=== PATIENT | female | born 1950 | race Caucasian/White ===

== ENCOUNTER → 2017-01-26 | Outpatient (CLI) | payer BC ==
[2017-01-26 13:38] LABS: ALT 47 U/L (9-52); AST 27 U/L (14-36); Alkaline Phosphatase 91 U/L (38-126); Anion Gap 10 mmol/L; Blood Urea Nitrogen 13 mg/dL (7-17); Calcium 9.8 mg/dL (8.4-10.2); Carbon Dioxide 29 mmol/L (22-30); Chloride 104 mmol/L (98-107); Cholesterol 188 mg/dL (<200); Glucose 115 mg/dL (74-99); HDL Cholesterol 65 mg/dL (40-60); Non-African American GFR(MDRD) 52 (>60 ml/min/1.73 sqM); Potassium 4.5 mmol/L (3.5-5.1); Sodium 143 mmol/L (137-145); Total Bilirubin 1.5 mg/dL (0.2-1.3); Total Protein 7.8 g/dL (6.3-8.2); Triglycerides 99 mg/dL (<150)
== END | disposition home or self-care (01) ==
LOC: LABWHC1 13:00
PROVIDERS: ATTEND Internal Medicine Interventional Cardiology
DX: E78.2 Mixed hyperlipidemia (principal)
CPT/HCPCS: 36415; 80053; 80061

== ENCOUNTER → 2017-07-29 | Outpatient (CLI) | payer MEDICARE ==
[2017-07-29 12:57] LABS: ALT 51 U/L (9-52); AST 30 U/L (14-36); Cholesterol 190 mg/dL (<200); HDL Cholesterol 67 mg/dL (40-60)
== END | disposition home or self-care (01) ==
LOC: LABWHC1 12:32
PROVIDERS: ATTEND Internal Medicine Interventional Cardiology
DX: E78.2 Mixed hyperlipidemia (principal)
CPT/HCPCS: 36415; 80061; 84450; 84460

== ENCOUNTER → 2018-02-13 | Outpatient (CLI) | payer MEDICARE ==
[2018-02-13 13:15] LABS: Albumin 4.2 g/dL (3.5-5.0); Calcium 9.6 mg/dL (8.4-10.2); Potassium 4.8 mmol/L (3.5-5.1); Total Bilirubin 1.3 mg/dL (0.2-1.3); Total Protein 7.4 g/dL (6.3-8.2)
== END | disposition home or self-care (01) ==
LOC: LABWHC1 12:28
PROVIDERS: ATTEND Internal Medicine Interventional Cardiology
DX: E78.2 Mixed hyperlipidemia (principal)
CPT/HCPCS: 36415; 80053; 80061

== ENCOUNTER → 2018-08-24 | Outpatient (CLI) | payer MEDICARE ==
[2018-08-24 19:37] LABS: LDL Cholesterol,Calculated 108.8 mg/dL (0.0-131.0); VLDL Calculation 19.2 mg/dL (5.00-40.00)
== END | disposition home or self-care (01) ==
LOC: LABWHC1 12:39
PROVIDERS: ATTEND Internal Medicine Interventional Cardiology
DX: E78.2 Mixed hyperlipidemia (principal)
CPT/HCPCS: 36415; 80061; 84450; 84460

== ENCOUNTER → 2019-03-17 | Outpatient (CLI) | payer MEDICARE ==
[2019-03-17 16:11] LABS: Albumin 4.3 g/dL (3.80-4.90); Albumin/Globulin Ratio 1.79 (1.60-3.17); Anion Gap 7.8 mmol/L (4.00-12.00); Calcium 9.5 mg/dL (8.7-10.3); Carbon Dioxide 26.2 mmol/L (21.6-31.8); Globulin 2.4 g/dL (1.6-3.3); LDL Cholesterol,Calculated 113.6 mg/dL (0.0-131.0); Potassium 4.4 mmol/L (3.5-5.5); Total Bilirubin 1.3 mg/dL (0.2-1.2); Total Protein 6.7 g/dL (6.2-8.2); VLDL Calculation 18.4 mg/dL (5.00-40.00)
== END | disposition home or self-care (01) ==
LOC: LABWHC1 11:48
PROVIDERS: ATTEND Internal Medicine Interventional Cardiology
DX: E78.2 Mixed hyperlipidemia (principal)
CPT/HCPCS: 36415; 80053; 80061

== ENCOUNTER → 2019-09-24 | Outpatient (CLI) | payer MEDICARE ==
[2019-09-24 17:53] LABS: Chol/HDL Ratio 2.61; LDL Cholesterol,Calculated 75.6 mg/dL (0.0-131.0); VLDL Calculation 14.4 mg/dL (5.00-40.00)
== END | disposition home or self-care (01) ==
LOC: LABWHC1 11:42
PROVIDERS: ATTEND Internal Medicine Interventional Cardiology
DX: E78.2 Mixed hyperlipidemia (principal)
CPT/HCPCS: 36415; 80061; 84450; 84460

== ENCOUNTER → 2019-10-26 | Outpatient (CLI) | payer MEDICARE ==
--- NOTE | 2019-10-27 14:38 | US ---
EXAMINATION TYPE: US venous doppler duplex LE LT DATE OF EXAM: 10/26/2019 5:22 PM COMPARISON: NONE CLINICAL HISTORY: Swelling of Left Lower Limb. calf palpable and pain, no h/o dvt SIDE PERFORMED: Left TECHNIQUE: The lower extremity deep venous system is examined utilizing real time linear array sonog amanda with graded compression, doppler sonography and color-flow sonography. VESSELS IMAGED: External Iliac Vein (EIV) Common Femoral Vein Deep Femoral Vein Greater Saphenous Vein * Femoral Vein Popliteal Vein Small Saphenous Vein * Proximal Calf Veins (* superficial vessels) Left Leg: Appears negative for DVT, superficial clot within seen in palpable lump on calf, noncompre ssible, internal echoes with no flow IMPRESSION: 1. No sonographic evidence of deep venous thrombosis within the left lower extremity. 2. Superficial venous thrombosis within left calf varicose veins.
== END | disposition home or self-care (01) ==
LOC: RADUSMAIN 16:44
PROVIDERS: ATTEND Family Medicine
DX: I82.812 Embolism and thrombosis of superficial veins of left lower extremity (principal); I86.8 Varicose veins of other specified sites

== ENCOUNTER → 2020-03-14 | Outpatient (CLI) | payer MEDICARE ==
[2020-03-14 19:18] LABS: African American GFR (CKD) 60.2 (60.0-200.0); Albumin 4.2 g/dL (3.80-4.90); Albumin/Globulin Ratio 1.75 (1.60-3.17); BUN/Creat Ratio 14.55 Ratio (12.00-20.00); Calcium 9.3 mg/dL (8.7-10.3); Chol/HDL Ratio 2.92; Globulin 2.4 g/dL (1.6-3.3); LDL Cholesterol,Calculated 75.6 mg/dL (0.0-131.0); Non-African American GFR(CKD) 51.9 (60.0-200.0); Potassium 4.5 mmol/L (3.5-5.5); Total Bilirubin 2.2 mg/dL (0.2-1.2); Total Protein 6.6 g/dL (6.2-8.2); VLDL Calculation 18.4 mg/dL (5.00-40.00)
== END | disposition home or self-care (01) ==
LOC: LABWHC1 10:52
PROVIDERS: ATTEND Internal Medicine Interventional Cardiology
DX: E78.2 Mixed hyperlipidemia (principal)
CPT/HCPCS: 36415; 80053; 80061

== ENCOUNTER 2020-07-03 15:43 | Observation (INO) | payer MEDICARE ==
[2020-07-03] MEDS ORDERED: PANTOPRAZOLE 40 MG/10 ML VIAL IVP STA (16:13)
[2020-07-03 16:39] LABS: Basophils # (A) 0.1 k/uL (0-0.2); Basophils % (A) 1 %; Eosinophils # (A) 0.2 k/uL (0-0.7); Eosinophils % (A) 2 %; HCT 43.6 % (34.0-46.0); HGB 14.4 gm/dL (11.4-16.0); Lymphocytes # (A) 2.1 k/uL (1.0-4.8); Lymphocytes % (A) 25 %; MCH 28.5 pg (25.0-35.0); MCHC 32.9 g/dL (31.0-37.0); MCV 86.5 fL (80.0-100.0); Mean Platelet Volume 7.3; Monocytes # (A) 0.5 k/uL (0-1.0); Monocytes % (A) 6 %; Neutrophils # (A) 5.4 k/uL (1.3-7.7); Neutrophils % (A) 65 %; Platelet Count 308 k/uL (150-450); RBC 5.04 m/uL (3.80-5.40); RDW 12.8 % (11.5-15.5); WBC 8.3 k/uL (3.8-10.6)
[2020-07-03 16:49] LABS: Partial Thromboplastin Time 23.2 sec (22.0-30.0)
[2020-07-03 16:52] LABS: Albumin 4.3 g/dL (3.5-5.0); Calcium 9.9 mg/dL (8.4-10.2); Magnesium 2.3 mg/dL (1.6-2.3); Potassium 4.3 mmol/L (3.5-5.1); Total Bilirubin 2.9 mg/dL (0.2-1.3); Total Protein 7.4 g/dL (6.3-8.2)
--- NOTE | 2020-07-03 17:05 | XR ---
EXAMINATION TYPE: XR chest 2V DATE OF EXAM: 07/03/2020 COMPARISON: 05/21/2011 HISTORY: Pain TECHNIQUE: FINDINGS: There is no heart failure nor confluent pneumonic infiltrate. Costophrenic angles are clear . Heart size is normal. Bony thorax is intact. IMPRESSION: No active cardiopulmonary disease. Normal heart.
[2020-07-03] MEDS ORDERED: cefTRIAXone IN SWFI 1,000 MG/10 ML SYRINGE IVP STA (17:11)
[2020-07-03] MEDS ORDERED: HYDROmorphone 1 MG/ML 1 ML SYRINGE IVP STA (17:11)
--- NOTE | 2020-07-03 17:26 | ED ---
General Adult HPI - General Chief complaint: Chest Pain Stated complaint: chest pain Time Seen by Provider: 07/03/20 15:55 Source: patient, RN notes reviewed, old records reviewed Mode of arrival: ambulatory Limitations: no limitations - History of Present Illness Initial comments: 69 -year-old female presenting for evaluation of epigastric and substernal chest pain. Patient's symptoms have been present for the past 4 hours. There is no associated nausea or vomiting. No diaphoresis. Patient has a history of a nonischemic cardiomyopathy and she does follow with cardiology. She denies fever. She denies cough or dyspnea. Denies lower extremity pain or swelling. She has no known history of coronary artery disease. - Related Data Home Medications Medication Instructions Recorded Confirmed Atorvastatin [Lipitor] 40 mg PO HS 07/03/20 07/03/20 Ezetimibe [Zetia] 10 mg PO DAILY 07/03/20 07/03/20 carvediloL [Coreg] 6.25 mg PO BID 07/03/20 07/03/20 lisinopriL 20 mg PO BID 07/03/20 07/03/20 Allergies Allergy/AdvReac Type Severity Reaction Status Date / Time No Known Allergies Allergy Verified 07/03/20 20:12 Review of Systems ROS Statement: Those systems with pertinent positive or pertinent negative responses have been documented in the HPI. ROS Other: All systems not noted in ROS Statement are negative. Past Medical History Past Medical History: Hyperlipidemia, Hypertension History of Any Multi-Drug Resistant Organisms: None Reported Past Surgical History: Tubal Ligation Past Psychological History: No Psychological Hx Reported Smoking Status: Never smoker Past Alcohol Use History: None Reported Past Drug Use History: None Reported General Exam Limitations: no limitations General appearance: alert, in no apparent distress Head exam: Present: atraumatic, normocephalic Eye exam: Present: normal appearance ENT exam: Present: normal exam Neck exam: Present: normal inspection. Absent: tenderness, meningismus Respiratory exam: Present: normal lung sounds bilaterally. Absent: respiratory distress, wheezes Cardiovascular Exam: Present: regular rate, normal rhythm GI/Abdominal exam: Present: soft. Absent: distended Extremities exam: Present: normal inspection, normal capillary refill. Absent: pedal edema, calf tenderness Neurological exam: Present: alert, oriented X3, CN II-XII intact. Absent: motor sensory deficit Psychiatric exam: Present: normal affect, normal mood Skin exam: Present: warm, dry, intact. Absent: cyanosis, diaphoretic Course Vital Signs 07/03/20 07/03/20 15:51 17:33 Temperature 97.9 F Pulse Rate 65 60 Respiratory 18 18 Rate Blood Pressure 146/71 145/88 O2 Sat by Pulse 100 98 Oximetry EKG Findings - EKG Comments: EKG Findings:: EKG: Obtained at 1607, sinus rhythm with PAC, rate of 66, NH interval 154, QRS duration 96, QTC 450, ST segment abnormality in lead 3, no reciprocal depression, EKG obtained at 1625, sinus rhythm rate with axis, no ST segment elevation, rate of 63, NH interval 152, QRS duration 102, QTC 446 Medical Decision Making - Medical Decision Making 69-year-old female presented for evaluation of epigastric abdominal pain and lower chest pain. No vomiting. No fever. Pain does not radiate. EKG is sinus rhythm. Workup reveals normal CBC, CMP shows elevated bilirubin at 2.9 and elevated AST and ALT. She does not have significant abdominal tenderness however ultrasound is performed which shows cholelithiasis, dilated common bile duct. Pain is improved the emergency department. She started on IV antibiotics she will be admitted to internal medicine with both gastroenterology and general surgery on consult. I did discuss case with Dr. German covering for general surgery. - Lab Data Result diagrams: 07/03/20 16:31 07/03/20 16:31 Lab Results 07/03/20 07/03/20 07/03/20 Range/Units 16:31 16:31 16:31 WBC 8.3 (3.8-10.6) k/uL RBC 5.04 (3.80-5.40) m/uL Hgb 14.4 (11.4-16.0) gm/dL Hct 43.6 (34.0-46.0) % MCV 86.5 (80.0-100.0) fL MCH 28.5 (25.0-35.0) pg MCHC 32.9 (31.0-37.0) g/dL RDW 12.8 (11.5-15.5) % Plt Count 308 (150-450) k/uL Neutrophils % 65 % Lymphocytes % 25 % Monocytes % 6 % Eosinophils % 2 % Basophils % 1 % Neutrophils # 5.4 (1.3-7.7) k/uL Lymphocytes # 2.1 (1.0-4.8) k/uL Monocytes # 0.5 (0-1.0) k/uL Eosinophils # 0.2 (0-0.7) k/uL Basophils # 0.1 (0-0.2) k/uL PT 10.0 (9.0-12.0) sec INR 1.0 (<1.2) APTT 23.2 (22.0-30.0) sec Sodium 140 (137-145) mmol/L Potassium 4.3 (3.5-5.1) mmol/L Chloride 105 (98-107) mmol/L Carbon Dioxide 26 (22-30) mmol/L Anion Gap 9 mmol/L BUN 17 (7-17) mg/dL Creatinine 0.96 (0.52-1.04) mg/dL Est GFR (CKD-EPI)AfAm 71 (>60 ml/min/1.73 sqM) Est GFR (CKD-EPI)NonAf 61 (>60 ml/min/1.73 sqM) Glucose 125 H (74-99) mg/dL Calcium 9.9 (8.4-10.2) mg/dL Magnesium 2.3 (1.6-2.3) mg/dL Total Bilirubin 2.9 H (0.2-1.3) mg/dL AST 122 H (14-36) U/L ALT 78 H (4-34) U/L Alkaline Phosphatase 101 (38-126) U/L Troponin I (0.000-0.034) ng/mL Total Protein 7.4 (6.3-8.2) g/dL Albumin 4.3 (3.5-5.0) g/dL Lipase 224 (23-300) U/L 07/03/20 Range/Units 16:31 WBC (3.8-10.6) k/uL RBC (3.80-5.40) m/uL Hgb (11.4-16.0) gm/dL Hct (34.0-46.0) % MCV (80.0-100.0) fL MCH (25.0-35.0) pg MCHC (31.0-37.0) g/dL RDW (11.5-15.5) % Plt Count (150-450) k/uL Neutrophils % % Lymphocytes % % Monocytes % % Eosinophils % % Basophils % % Neutrophils # (1.3-7.7) k/uL Lymphocytes # (1.0-4.8) k/uL Monocytes # (0-1.0) k/uL Eosinophils # (0-0.7) k/uL Basophils # (0-0.2) k/uL PT (9.0-12.0) sec INR (<1.2) APTT (22.0-30.0) sec Sodium (137-145) mmol/L Potassium (3.5-5.1) mmol/L Chloride (98-107) mmol/L Carbon Dioxide (22-30) mmol/L Anion Gap mmol/L BUN (7-17) mg/dL Creatinine (0.52-1.04) mg/dL Est GFR (CKD-EPI)AfAm (>60 ml/min/1.73 sqM) Est GFR (CKD-EPI)NonAf (>60 ml/min/1.73 sqM) Glucose (74-99) mg/dL Calcium (8.4-10.2) mg/dL Magnesium (1.6-2.3) mg/dL Total Bilirubin (0.2-1.3) mg/dL AST (14-36) U/L ALT (4-34) U/L Alkaline Phosphatase (38-126) U/L Troponin I <0.012 (0.000-0.034) ng/mL Total Protein (6.3-8.2) g/dL Albumin (3.5-5.0) g/dL Lipase (23-300) U/L Disposition Clinical Impression: Cholelithiasis, Choledocholithiasis, Hyperbilirubinemia Disposition: ADMITTED IP TO THIS [facility] Condition: Stable Is patient prescribed a controlled substance at d/c from ED?: No Referrals: Rene Phelan DO [Primary Care Provider] - 1-2 days Decision to Admit Reason: Admit from EC Decision Date: 07/03/20 Decision Time: 20:25
--- NOTE | 2020-07-03 19:50 | US ---
EXAMINATION TYPE: US gallbladder DATE OF EXAM: 07/03/2020 COMPARISON: NONE CLINICAL HISTORY: AB PAIN. Abdominal pain per order. Chest pain x 7 hours. EXAM MEASUREMENTS: Liver Length: 15.3 cm Gallbladder Wall: 0.29 cm CBD: 1.28 cm Right Kidney: 9.9 x 5.1 x 4.3 cm Pancreas: No abnormalities seen at this time. Liver: Anechoic area seen within left lobe measurin.1 x 1.2 x 0.9 cm. Gallbladder: Multiple hyperechoic areas with posterior shadowing are seen within the gallbladder. Evidence for sonographic Hebert's sign: No CBD: Measures dilated. Right Kidney: Renal pelvis appears prominent. IMPRESSION: Numerous gallstones. Large common bile duct but no dilation seen of the intrahepatic bile ducts. This is consistent with chronic gallbladder dysfunction.
[2020-07-03] MEDS ORDERED: metroNIDAZOLE-NS PMX 500 MG in SALINE 1 100ML.BAG IVPB STA (20:05)
[2020-07-03] MEDS ORDERED: HYDROmorphone 0.5 MG/0.5 ML SYRINGE IVP PRN (20:13)
[2020-07-03] MEDS ORDERED: ACETAMINOPHEN TAB 325 MG TAB PO PRN (20:13)
[2020-07-03] MEDS ORDERED: NALOXONE 0.4 MG/ML 1 ML VIAL IV PRN (20:13)
[2020-07-03] MEDS: SODIUM CHLORIDE 0.9% 1,000 ML IV SCH (20:22)
[2020-07-03] MEDS ORDERED: EZETIMIBE 10 MG TAB PO SCH (22:45)
[2020-07-03] MEDS: lisinopriL 20 MG TAB PO SCH (22:57)
[2020-07-03] MEDS: carvediloL 6.25 MG TAB PO SCH (22:57)
[2020-07-03] MEDS: ATORVASTATIN 40 MG TAB PO SCH (22:57)
[2020-07-04] MEDS: SODIUM CHLORIDE 0.9% 1,000 ML IV SCH ×3 (04:42→21:13)
[2020-07-04] MEDS: metroNIDAZOLE-NS PMX 500 MG in SALINE 1 100ML.BAG IVPB SCH ×3 (04:42→21:13)
[2020-07-04] MEDS: EZETIMIBE 10 MG TAB PO SCH (08:53)
[2020-07-04] MEDS: lisinopriL 20 MG TAB PO SCH ×2 (08:53→21:13)
[2020-07-04] MEDS: carvediloL 6.25 MG TAB PO SCH ×2 (08:53→16:26)
[2020-07-04 10:59] LABS: Basophils # (A) 0.1 k/uL (0-0.2); Basophils % (A) 1 %; Eosinophils # (A) 0.1 k/uL (0-0.7); Eosinophils % (A) 2 %; HCT 41.6 % (34.0-46.0); HGB 13.6 gm/dL (11.4-16.0); Lymphocytes # (A) 1.2 k/uL (1.0-4.8); Lymphocytes % (A) 21 %; MCH 28.7 pg (25.0-35.0); MCHC 32.7 g/dL (31.0-37.0); MCV 87.6 fL (80.0-100.0); Mean Platelet Volume 7.7; Monocytes # (A) 0.3 k/uL (0-1.0); Monocytes % (A) 6 %; Neutrophils # (A) 3.9 k/uL (1.3-7.7); Neutrophils % (A) 69 %; Platelet Count 277 k/uL (150-450); RBC 4.75 m/uL (3.80-5.40); RDW 12.7 % (11.5-15.5); WBC 5.6 k/uL (3.8-10.6)
[2020-07-04] MEDS ORDERED: INDOMETHACIN 50MG SUPPOSITORY RECTAL ONE (11:00)
[2020-07-04 11:09] LABS: Albumin 3.7 g/dL (3.5-5.0); Potassium 4.2 mmol/L (3.5-5.1); Total Bilirubin 3.1 mg/dL (0.2-1.3); Total Protein 6.5 g/dL (6.3-8.2)
--- NOTE | 2020-07-04 11:38 | P.GSCN ---
<Cyndy Jeong - Last Filed: 07/04/20 11:26> History of Present Illness Consult date: 07/04/20 History of present illness: CHIEF COMPLAINT: Abdominal pain HISTORY OF PRESENT ILLNESS: This is a 69-year-old female with a history of nonischemic cardiopathy, hypertension and hyperlipidemia. She presented to the emergency room with complaints of right upper quadrant pain that radiates to the left and all way around the back. She describes it as a burning sensation and rate the pain 10 out of 10. She reports symptoms started around noon yesterday and continued to progressively get worse. She reports that for a while now she does get pain after eating. She denies any vomiting or fever. She has been having regular bowel movements. She reports that her pain is better since coming into the hospital. Ultrasound of the gallbladder showed numerous gallstones. Large common bile duct. But no dilation seen of the intrahepatic bile ducts. Her total bilirubin and LFTs are elevated. Patient is also been seen by GI service and they're planning for ERCP today. PAST MEDICAL HISTORY: See list. PAST SURGICAL HISTORY: See list. MEDICATIONS: See list. ALLERGIES: See list. SOCIAL HISTORY: No illicit drug use. REVIEW OF SYSTEMS: CONSTITUTIONAL: Denies fever or chills. HEENT: Denies blurred vision, vision changes, or eye pain. Denies hemoptysis CARDIOVASCULAR: Denies chest pain or pressure. RESPIRATORY: No shortness of breath. GASTROINTESTINAL: See HPI for pertinent findings HEMATOLOGIC: Denies bleeding disorders. GENITOURINARY: Denies any blood in urine or increased urinary frequency. SKIN: Denies pruitis. Denies rash. PHYSICAL EXAM: VITAL SIGNS: Reviewed GENERAL: Well-developed in no acute distress. HEENT: No sclera icterus. Extraocular movements grossly intact. Moist buccal mucosa. Head is atraumatic, normocephalic. No nasal drainage. ABDOMEN: Soft. Nondistended. Mild tenderness with palpation of the right upper quadrant and epigastric area NEUROLOGIC: Alert and oriented. Cranial nerves II through XII grossly intact. LABORATORY DATA: WBC 5.6 hemoglobin 13.6 platelets 277 total bili 3.1 AST to 44 ALT 326 alk phos 135 IMAGING: Abdominal ultrasound numerous gallstones. Large common bile duct. But no dilation seen of the intrahepatic bile ducts. Findings consistent with chronic gallbladder dysfunction ASSESSMENT: 1. Choledocholithiasis 2. Cholelithiasis 3. Hyperbilirubinemia 4. History of nonischemic myopathy 5. Essential hypertension 6. Hyperlipidemia PLAN: -Keep patient nothing by mouth -Agree with ERCP by GI service -Continue IV fluids -Continue pain medications as needed Physician Stained Glass Glazier note has been reviewed by physician. Signing provider agrees with the documented findings, assessment, and plan of care. Past Medical History Past Medical History: Hyperlipidemia, Hypertension History of Any Multi-Drug Resistant Organisms: None Reported Past Surgical History: Tubal Ligation Past Anesthesia/Blood Transfusion Reactions: No Reported Reaction Past Psychological History: No Psychological Hx Reported Smoking Status: Never smoker Past Alcohol Use History: None Reported Past Drug Use History: None Reported Medications and Allergies Home Medications Medication Instructions Recorded Confirmed Type Atorvastatin [Lipitor] 40 mg PO HS 07/03/20 07/03/20 History Ezetimibe [Zetia] 10 mg PO DAILY 07/03/20 07/03/20 History carvediloL [Coreg] 6.25 mg PO BID 07/03/20 07/03/20 History lisinopriL 20 mg PO BID 07/03/20 07/03/20 History Allergies Allergy/AdvReac Type Severity Reaction Status Date / Time No Known Allergies Allergy Verified 07/03/20 20:12 Surgical - Exam Vital Signs Temp Pulse Resp BP Pulse Ox 97.9 F 65 18 146/71 100 07/03/20 15:51 07/03/20 15:51 07/03/20 15:51 07/03/20 15:51 07/03/20 15:51 Results - Labs 07/04/20 10:42 07/04/20 10:42 Abnormal Lab Results - Last 24 Hours (Table) 07/03/20 07/04/20 Range/Units 16:31 10:42 Chloride 108 H (98-107) mmol/L Glucose 125 H 118 H (74-99) mg/dL Total Bilirubin 2.9 H 3.1 H (0.2-1.3) mg/dL AST 122 H 244 H (14-36) U/L ALT 78 H 326 H (4-34) U/L Alkaline Phosphatase 135 H (38-126) U/L Diabetes panel 07/03/20 07/04/20 Range/Units 16:31 10:42 Sodium 140 141 (137-145) mmol/L Potassium 4.3 4.2 (3.5-5.1) mmol/L Chloride 105 108 H (98-107) mmol/L Carbon Dioxide 26 27 (22-30) mmol/L BUN 17 15 (7-17) mg/dL Creatinine 0.96 1.04 (0.52-1.04) mg/dL Glucose 125 H 118 H (74-99) mg/dL Calcium 9.9 9.0 (8.4-10.2) mg/dL AST 122 H 244 H (14-36) U/L ALT 78 H 326 H (4-34) U/L Alkaline Phosphatase 101 135 H (38-126) U/L Total Protein 7.4 6.5 (6.3-8.2) g/dL Albumin 4.3 3.7 (3.5-5.0) g/dL Calcium panel 07/03/20 07/04/20 Range/Units 16:31 10:42 Calcium 9.9 9.0 (8.4-10.2) mg/dL Albumin 4.3 3.7 (3.5-5.0) g/dL Pituitary panel 07/03/20 07/04/20 Range/Units 16:31 10:42 Sodium 140 141 (137-145) mmol/L Potassium 4.3 4.2 (3.5-5.1) mmol/L Chloride 105 108 H (98-107) mmol/L Carbon Dioxide 26 27 (22-30) mmol/L BUN 17 15 (7-17) mg/dL Creatinine 0.96 1.04 (0.52-1.04) mg/dL Glucose 125 H 118 H (74-99) mg/dL Calcium 9.9 9.0 (8.4-10.2) mg/dL Adrenal panel 07/03/20 07/04/20 Range/Units 16:31 10:42 Sodium 140 141 (137-145) mmol/L Potassium 4.3 4.2 (3.5-5.1) mmol/L Chloride 105 108 H (98-107) mmol/L Carbon Dioxide 26 27 (22-30) mmol/L BUN 17 15 (7-17) mg/dL Creatinine 0.96 1.04 (0.52-1.04) mg/dL Glucose 125 H 118 H (74-99) mg/dL Calcium 9.9 9.0 (8.4-10.2) mg/dL Total Bilirubin 2.9 H 3.1 H (0.2-1.3) mg/dL AST 122 H 244 H (14-36) U/L ALT 78 H 326 H (4-34) U/L Alkaline Phosphatase 101 135 H (38-126) U/L Total Protein 7.4 6.5 (6.3-8.2) g/dL Albumin 4.3 3.7 (3.5-5.0) g/dL <Samuel German - Last Filed: 07/04/20 14:12> History of Present Illness History of present illness: As above. Patient with presentation consistent with choledocholithiasis and cholecystitis. Today's liver enzymes have increased slightly. Apparently patient is already scheduled for ERCP today. Await those findings. Likely discharge over the weekend and plan semi-elective laparoscopic cholecystectomy next 1-2 weeks. Clinical scenario discussed in detail with the patient. Patient expresses understanding. Surgical - Exam Vital Signs Temp Pulse Resp BP Pulse Ox 97.9 F 65 18 146/71 100 07/03/20 15:51 07/03/20 15:51 07/03/20 15:51 07/03/20 15:51 07/03/20 15:51 Results - Labs 07/04/20 10:42 07/04/20 10:42 Abnormal Lab Results - Last 24 Hours (Table) 07/03/20 07/04/20 Range/Units 16:31 10:42 Chloride 108 H (98-107) mmol/L Glucose 125 H 118 H (74-99) mg/dL Total Bilirubin 2.9 H 3.1 H (0.2-1.3) mg/dL AST 122 H 244 H (14-36) U/L ALT 78 H 326 H (4-34) U/L Alkaline Phosphatase 135 H (38-126) U/L Diabetes panel 07/03/20 07/04/20 Range/Units 16:31 10:42 Sodium 140 141 (137-145) mmol/L Potassium 4.3 4.2 (3.5-5.1) mmol/L Chloride 105 108 H (98-107) mmol/L Carbon Dioxide 26 27 (22-30) mmol/L BUN 17 15 (7-17) mg/dL Creatinine 0.96 1.04 (0.52-1.04) mg/dL Glucose 125 H 118 H (74-99) mg/dL Calcium 9.9 9.0 (8.4-10.2) mg/dL AST 122 H 244 H (14-36) U/L ALT 78 H 326 H (4-34) U/L Alkaline Phosphatase 101 135 H (38-126) U/L Total Protein 7.4 6.5 (6.3-8.2) g/dL Albumin 4.3 3.7 (3.5-5.0) g/dL Calcium panel 07/03/20 07/04/20 Range/Units 16:31 10:42 Calcium 9.9 9.0 (8.4-10.2) mg/dL Albumin 4.3 3.7 (3.5-5.0) g/dL Pituitary panel 07/03/20 07/04/20 Range/Units 16:31 10:42 Sodium 140 141 (137-145) mmol/L Potassium 4.3 4.2 (3.5-5.1) mmol/L Chloride 105 108 H (98-107) mmol/L Carbon Dioxide 26 27 (22-30) mmol/L BUN 17 15 (7-17) mg/dL Creatinine 0.96 1.04 (0.52-1.04) mg/dL Glucose 125 H 118 H (74-99) mg/dL Calcium 9.9 9.0 (8.4-10.2) mg/dL Adrenal panel 07/03/20 07/04/20 Range/Units 16:31 10:42 Sodium 140 141 (137-145) mmol/L Potassium 4.3 4.2 (3.5-5.1) mmol/L Chloride 105 108 H (98-107) mmol/L Carbon Dioxide 26 27 (22-30) mmol/L BUN 17 15 (7-17) mg/dL Creatinine 0.96 1.04 (0.52-1.04) mg/dL Glucose 125 H 118 H (74-99) mg/dL Calcium 9.9 9.0 (8.4-10.2) mg/dL Total Bilirubin 2.9 H 3.1 H (0.2-1.3) mg/dL AST 122 H 244 H (14-36) U/L ALT 78 H 326 H (4-34) U/L Alkaline Phosphatase 101 135 H (38-126) U/L Total Protein 7.4 6.5 (6.3-8.2) g/dL Albumin 4.3 3.7 (3.5-5.0) g/dL
[2020-07-04] MEDS: PANTOPRAZOLE 40 MG/10 ML VIAL IVP SCH (12:00)
[2020-07-04] MEDS ORDERED: fentaNYL (PF) 50 MCG/ML 2 ML AMP ONE (13:31)
[2020-07-04] MEDS ORDERED: PROPOFOL 10 MG/ML 20 ML VIAL IV ONE (13:31)
[2020-07-04] MEDS ORDERED: LIDOCAINE 1% INJ 10MG/ML (20 ML MDV) ONE (13:31)
[2020-07-04] MEDS ORDERED: KETAMINE 10 MG/ML 20 ML VIAL ONE (13:31)
[2020-07-04] MEDS ORDERED: MIDAZOLAM 2 MG/2 ML VIAL ONE (13:31)
[2020-07-04] MEDS ORDERED: IOPAMIDOL-300 50ML BTL INJ ONE (13:54)
--- NOTE | 2020-07-04 14:13 | P.PCN ---
Date of Procedure: 07/04/20 Procedure(s) Performed: Brief history: Patient is a 69-year-old pleasant lady scheduled for an ERCP as part of evaluation of abdominal pain, jaundice and elevated serum transaminases for the last 2 days' duration. Ultrasound showed multiple gallstones and dilated common bile duct. Because of the clinical suspicion for CBD stones she is scheduled for an ERCP today. Procedure performed: ERCP with biliary sphincterotomy and balloon extraction Preoperative diagnoses: Abdominal pain/ elevated LFTs, jaundice and ultrasound showing dilated CBD and constipation IV sedation per anesthesia: Procedure: After informed consent was obtained from the patient and after the risks benefits and complications including bleeding perforation and pancreatitis explained in detail the patient was brought into the endoscopy unit. The patient was placed in prone position and IV conscious sedation was administered by anesthesia under continuous monitoring. The Olympus side-viewing duodenoscope was then inserted into the mouth and esophagus intubated without any difficulty. The scope was gradually advanced into the stomach and duodenum. The major papilla was identified without any difficulty. Initial cannulation resulted resulted in opacification of the pancreatic duct that appeared normal. Subsequent cannulation resultedin its in the common bile duct and upon injection of the dye the duct was dilated measuring 1 cm in diameter. It was a faint filling defect noted in the distal common bile duct noted. There was no intrahepatic biliary ductal dilation. At this time a biliary sphincterotomy was performed over a guidewire after the catheter was exchanged. The sphincterotomy was performed at 12 o'clock position and was extended to 1 cm. Following this a 1 cm balloon was passed over the guidewire into the proximal CBD, gently inflated and withdrawn and I did not see any stones exiting the ampulla. The maneuver was repeated 2 more times. Occlusion cholangiogram was performed. No filling defects were seen. At this time the procedure was terminated. Patient tolerated the procedure well. Impression: Normal pancreatic duct Dilated common bile duct measuring 10 mm in diameter with a faint filling defect in the distal common bile duct status post biliary sphincterotomy and balloon sweep Recommendations: The findings of this examination were discussed with the patient. She was started on a clear liquid diet. Pain medications as needed. Continue antibiotics. Repeat labs in the morning.
[2020-07-04] MEDS ORDERED: IV FLUID CONTINUATION 1,000 ML IV ONE (14:19)
--- NOTE | 2020-07-04 14:34 | FL ---
EXAMINATION TYPE: FL ERCP biliary duct only DATE OF EXAM: 07/04/2020 COMPARISON: NONE HISTORY: Dilated common bile duct Fluoroscopy support supplied to the referring clinician. See dictated report from gastroenterology, 1 minute 35 seconds fluoroscopy time, 2 intraoperative images document the procedure
--- NOTE | 2020-07-04 16:06 | P.HPIM ---
History of Present Illness H&P Date: 07/04/20 Chief Complaint: Distal mid epigastric strict abdominal pressure/right upper quadrant pain This is 69-year-old female with history of hypertension, hyperlipidemia, nonischemic cardiomyopathy presented to the ER with complaints of mid epigastric to right upper quadrant burning pain radiating to back 4 hours. Reports pain worsens after eating. Denies nausea vomiting or diarrhea. Denies fever or chills. Denies cough congestion or shortness of breath. Chest x-ray reporting no acute cardiopulmonary disease. Gallbladder ultrasound reporting numerous gallstones, large common bile duct but no dilation seen at the intrahepatic bile ducts, consistent with chronic gallbladder dysfunction. T bili and LFTs elevated. Evaluated by surgery and GI, scheduled for ERCP today. Afebrile, normal WBC. Review of Systems ROS Statement: Those systems with pertinent positive or pertinent negative responses have been documented in the HPI. ROS Other: All systems not noted in ROS Statement are negative. Past Medical History Past Medical History: Hyperlipidemia, Hypertension History of Any Multi-Drug Resistant Organisms: None Reported Past Surgical History: Tubal Ligation Past Anesthesia/Blood Transfusion Reactions: No Reported Reaction Past Psychological History: No Psychological Hx Reported Smoking Status: Never smoker Past Alcohol Use History: None Reported Past Drug Use History: None Reported Medications and Allergies Home Medications Medication Instructions Recorded Confirmed Type Atorvastatin [Lipitor] 40 mg PO HS 07/03/20 07/03/20 History Ezetimibe [Zetia] 10 mg PO DAILY 07/03/20 07/03/20 History carvediloL [Coreg] 6.25 mg PO BID 07/03/20 07/03/20 History lisinopriL 20 mg PO BID 07/03/20 07/03/20 History Allergies Allergy/AdvReac Type Severity Reaction Status Date / Time No Known Allergies Allergy Verified 07/03/20 20:12 Physical Exam Vitals: Vital Signs Temp Pulse Pulse Resp BP BP Pulse Ox 07/04/20 07:41 98.4 F 62 16 145/70 96 07/04/20 02:06 98.6 F 87 16 105/55 97 07/03/20 20:52 97.9 F 65 16 142/80 97 07/03/20 20:30 98.0 F 66 16 142/80 96 07/03/20 20:00 65 15 145/88 97 07/03/20 19:30 66 16 145/88 97 07/03/20 19:00 61 14 145/88 98 07/03/20 18:30 61 12 145/88 100 07/03/20 18:00 69 12 145/88 97 07/03/20 17:33 60 18 145/88 98 07/03/20 17:30 61 23 145/88 97 07/03/20 17:00 62 13 145/88 98 07/03/20 16:30 59 L 13 07/03/20 15:51 97.9 F 65 18 146/71 100 Intake and Output 07/03/20 07/04/20 07/04/20 22:59 06:59 14:59 Intake Total 480 Balance 480 Intake: Oral 480 Other: Voiding Method Toilet # Voids 1 1 Weight 77.111 kg PHYSICAL EXAM: VITAL SIGNS: As above GENERAL: Sitting up in bed, no acute distress HEENT: Conjunctivae normal. eyes normal. NECK: No JVD. No thyroid enlargement. No LNs CARDIOVASCULAR: S1, S2 regular.. No murmur RESPIRATION: Breath sounds diminished in the bases. No rhonchi or crackles. No bronchial breathing. ABDOMEN: Soft, nontender . No guarding. no masses palpable. No ascites, No hepatosplenomegaly.Bowel sounds heard. LEGS: No edema. no swelling PSYCHIATRY: Alert and oriented X3, mood and affect normal. NERVOUS SYSTEM: Cranial N 2-12 grossly normal. Moves all 4 limbs. Diffuse weakness No focal deficits. Strength and sensation grossly intact.. Skin: no lesions, no rash Joints: No active swelling. No inflammation. Lymphatic system. No LN neck axilla or groin. Results CBC & Chem 7: 07/04/20 10:42 07/04/20 10:42 Labs: Abnormal Lab Results - Last 24 Hours (Table) 07/03/20 07/04/20 Range/Units 16:31 10:42 Chloride 108 H (98-107) mmol/L Glucose 125 H 118 H (74-99) mg/dL Total Bilirubin 2.9 H 3.1 H (0.2-1.3) mg/dL AST 122 H 244 H (14-36) U/L ALT 78 H 326 H (4-34) U/L Alkaline Phosphatase 135 H (38-126) U/L Thrombosis Risk Factor Assmnt - Choose All That Apply Other Risk Factors: Yes Each Risk Factor Represents 2 Points: Age 61-74 years Other congenital or acquired thrombophilia - If yes, enter type in comment: No Thrombosis Risk Factor Assessment Total Risk Factor Score: 2 Thrombosis Risk Factor Assessment Level: Low Risk Assessment and Plan Assessment: Acute abdominal pain, secondary to cholecystitis, choledocholithiasis. ERCP pending Hyperbilirubinemia History of nonischemic cardiomyopathy Hypertension Hyperlipidemia Plan: Continue current medication regime ,monitoring and symptomatic treatment.NPO, ERCP pending. Maintain IV fluid hydration, Flagyl, Rocephin. Pain management. Laparoscopic cholecystectomy as per surgery, in the next 1 or 2 weeks. GI and surgery recommendations noted and appreciated. Close monitoring of T bili/LFTs with repeat labs ordered for a.m. The impression and plan of care has been dictated as directed. : I performed a history and examination of this patient, discussed the same with the dictator. I agree with the dictator's note ,documented as a scribe. Any additional findings or plans will be noted.
[2020-07-04] MEDS: ONDANSETRON 4 MG/2 ML VIAL IVP PRN (16:28)
--- NOTE | 2020-07-04 17:51 | CONS ---
CONSULTATION DATE OF DICTATION: 07/04/2020 REASON FOR CONSULTATION: Abdominal pain, elevated LFTs and jaundice. HISTORY OF PRESENT ILLNESS: The patient is a 69-year-old pleasant white female admitted to the hospital when she presented with severe acute onset of epigastric and right upper quadrant abdominal pain that started yesterday afternoon. Pain radiated to the back associated with nausea and vomiting. No fever, chills or night sweats. She came into the emergency room and was noted to have elevated LFTs and jaundice and hence we are consulted for possible ERCP. She is feeling much better today. She denies ever having these symptoms in the past. On review of her labs, T-bilirubin is up to 3.1. AST and ALT are 244 and 326, respectively. She did have ultrasound of the gallbladder done that showed multiple gallstones and dilated CBD at 1.2 cm. PAST MEDICAL HISTORY: Hypertension, hyperlipidemia. MEDICATIONS AT HOME: Lisinopril, Coreg, Zetia, Lipitor. ALLERGIES: NONE. SOCIAL HISTORY: No smoking. No alcohol use. FAMILY HISTORY: Unremarkable. REVIEW OF SYSTEMS: CARDIOPULMONARY: No chest pain or shortness of breath. GENITOURINARY: No dysuria or hematuria. MUSCULOSKELETAL: Unremarkable. SKIN: Unremarkable. ENDOCRINE: Unremarkable. PSYCHIATRIC: Unremarkable. NEUROLOGY: Unremarkable. ENT/VISION: Unremarkable. CONSTITUTIONAL: No recent weight loss. No fever, chills, night sweats. PHYSICAL EXAMINATION: She appears comfortable. Blood pressure 145/70, pulse rate 62, temperature 98.4. HEENT examination unremarkable. Conjunctivae pink. Sclerae anicteric. Oral cavity no lesions. NECK: No JVD or lymph node enlargement. CHEST: Clear to auscultation. HEART: Regular rate and rhythm. ABDOMEN: Soft. Mild tenderness in the epigastric area. Bowel sounds are positive. No organomegaly. EXTREMITIES: No pedal edema. SKIN: No rashes. NEUROLOGIC: Alert and oriented x3. No focal deficits. LABS: WBC 8.3, hemoglobin 14.4, platelets normal. Basic metabolic panel is within normal limits. T-bilirubin 3.1, AST 244, ALT 326, alkaline phosphatase 138. Amylase and lipase are normal. IMPRESSION: This lady presented to the hospital with severe epigastric pain radiating to the back associated with elevated liver function tests and mild jaundice. Ultrasound showed gallstones and biliary ductal dilation. Most likely we are dealing with choledocholithiasis. RECOMMENDATIONS: 1. Continue with antibiotics. 2. Keep her n.p.o. 3. Will proceed with an ERCP. I discussed with her risks, benefits and complications, including pancreatitis, bleeding, etc. She is agreeable to it. Thank you for this consultation. EBNOIE / JESSY: [id number] /
[2020-07-04] MEDS ORDERED: METOCLOPRAMIDE 5 MG/ML 2 ML VIAL IVP STA (18:12)
[2020-07-04] MEDS: ATORVASTATIN 40 MG TAB PO SCH (21:13)
[2020-07-05] MEDS: SODIUM CHLORIDE 0.9% 1,000 ML IV SCH ×3 (04:05→20:19)
[2020-07-05] MEDS: metroNIDAZOLE-NS PMX 500 MG in SALINE 1 100ML.BAG IVPB SCH ×3 (04:06→20:19)
[2020-07-05 07:11] LABS: Basophils % (A) 1 %; Eosinophils # (A) 0.2 k/uL (0-0.7); Eosinophils % (A) 2 %; HCT 36.6 % (34.0-46.0); HGB 11.9 gm/dL (11.4-16.0); Lymphocytes # (A) 1.7 k/uL (1.0-4.8); Lymphocytes % (A) 19 %; MCH 28.4 pg (25.0-35.0); MCHC 32.4 g/dL (31.0-37.0); MCV 87.8 fL (80.0-100.0); Mean Platelet Volume 7.5; Monocytes # (A) 0.6 k/uL (0-1.0); Monocytes % (A) 6 %; Neutrophils # (A) 6.7 k/uL (1.3-7.7); Neutrophils % (A) 72 %; Platelet Count 246 k/uL (150-450); RBC 4.17 m/uL (3.80-5.40); RDW 12.7 % (11.5-15.5); WBC 9.3 k/uL (3.8-10.6)
[2020-07-05 07:30] LABS: Albumin 2.9 g/dL (3.5-5.0); Calcium 8.2 mg/dL (8.4-10.2); Potassium 3.9 mmol/L (3.5-5.1); Total Bilirubin 1.9 mg/dL (0.2-1.3); Total Protein 5.5 g/dL (6.3-8.2)
[2020-07-05] MEDS: carvediloL 6.25 MG TAB PO SCH ×2 (08:03→16:57)
[2020-07-05] MEDS: EZETIMIBE 10 MG TAB PO SCH (08:03)
[2020-07-05] MEDS: lisinopriL 20 MG TAB PO SCH ×2 (08:03→20:19)
[2020-07-05] MEDS: PANTOPRAZOLE 40 MG/10 ML VIAL IVP SCH (08:03)
--- NOTE | 2020-07-05 10:13 | PN ---
PROGRESS NOTE DATE OF SERVICE: July 05, 2020 HISTORY OF PRESENT ILLNESS: The patient is a 69-year-old pleasant white female admitted to hospital with acute biliary pain, elevated LFTs and mild jaundice. Ultrasound showed gallstones. She had ERCP done yesterday that showed dilated CBD but no filling defects noted. She underwent biliary sphincterotomy. She is doing better today. She had some emesis after eating clear liquids this morning. No abdominal pain. PHYSICAL EXAMINATION: Appears comfortable. VITAL SIGNS: Stable. Blood pressure 149/71, pulse 85, temperature 97.8. HEENT examination unremarkable. Conjunctivae pink. Sclerae anicteric. Oral cavity no lesions. Neck no JVD. No lymph node enlargement. Chest was clear to auscultation. HEART: Regular rate and rhythm. ABDOMEN: Soft. Very minimal tenderness in the epigastric area. Rest of the abdomen was benign. Bowel sounds are positive. No organomegaly. Extremities: No pedal edema. NEUROLOGIC: Alert and oriented x3. No focal deficits. LABS: WBC 9.3, hemoglobin 11.9. Platelets normal. T-bilirubin down to 1.9. AST down to 100, ALT down to 204, alkaline phosphatase is normal. IMPRESSION: 1. Epigastric right upper quadrant abdominal pain with elevated LFTs and jaundice. Ultrasound showing gallstones and biliary ductal dilation, status post ERCP with biliary sphincterotomy yesterday. LFTs are improving today. She is doing well. 2. Nausea and vomiting, resolving. 3. Gallstones. RECOMMENDATIONS: 1. Advance diet as tolerated. 2. Pain medications as needed. 3. Monitor LFTs closely. Thank you for this consultation. MMODL / IJN: [id number] /
--- NOTE | 2020-07-05 15:06 | P.PN ---
Subjective Progress Note Date: 07/05/20 CHIEF COMPLAINT: Gallstones HISTORY OF PRESENT ILLNESS: The patient is a 69-year-old female with symptomatic gallstones. She is status post ERCP today. She reports improvement of her abdominal pain. LFTs including total bilirubin is improving. She tolerated low fat diet for lunch. She is eager to go home. ROS: No reports of nausea and vomiting. No fevers or chills. No new chest pain. No productive sputum PHYSICAL EXAM: VITAL SIGNS: Reviewed CONSTITUTIONAL: Well developed and in no acute distress. EYES: Conjuctivae without sclera icterus. Extraocular movements grossly intact. HEAD, EARS, NOSE, THROAT: Moist buccal mucosa. Head is atraumatic, normocephalic. Hears conversational speech. No nasal drainage. NECK: Supple. No thyroidomegaly. RESPIRATORY: Non-labored respirations and equal bilateral excursions. CARDIOVASCULAR: Palpable 2+ radial pulses. Regular rate. Regular rhythm. ABDOMEN: Soft. No peritonitis. MUSCULOSKELETAL: No gross deformity of the lower extremities noted. No clubbing. No cyanosis. SKIN: Good skin turgor. Well perfused. NEUROLOGIC: Cranial nerves II through XII grossly intact. No focal or lateralizing signs. PSYCH: Appropriate affect. Alert and oriented to person, place and time. CLINICAL LABS: Reviewed. White blood cell count normal at 9.3. ASSESSMENT: 1. Symptomatic gallstones PLAN: 1. May discharge home 2. Follow up as outpatient Objective - Vital Signs Vital signs: Vital Signs Temp 97.8 F 07/05/20 08:00 Pulse 63 07/05/20 08:04 Resp 16 07/05/20 08:04 BP 159/71 07/05/20 08:00 Pulse Ox 95 07/05/20 08:00 Intake & Output 07/04/20 07/05/20 07/05/20 18:59 06:59 18:59 Intake Total 1590 240 200 Balance 1590 240 200 Intake: IV 400 Intake, IV Titration 1190 Amount Sodium Chloride 0.9% 1, 1040 000 ml @ 130 mls/hr IV . Q7H42M [facility] Rx#:[id number] cefTRIAXone 1 gm In 50 Sodium Chloride 0.9% 50 ml @ 100 mls/hr IVPB Q24HR [facility] Rx#:[id number] metroNIDAZOLE-NS PMX 500 100 mg In Saline 1 100ml.bag @ 100 mls/hr IVPB Q8H [facility] Rx#:[id number] Oral 240 200 Other: Voiding Method Toilet Toilet Toilet # Voids 2 1 1 - Labs CBC & Chem 7: 07/05/20 06:51 07/05/20 06:51 Labs: Abnormal Lab Results - Last 24 Hours (Table) 07/05/20 Range/Units 06:51 Chloride 112 H (98-107) mmol/L Calcium 8.2 L (8.4-10.2) mg/dL Total Bilirubin 1.9 H (0.2-1.3) mg/dL AST 100 H (14-36) U/L ALT 204 H (4-34) U/L Total Protein 5.5 L (6.3-8.2) g/dL Albumin 2.9 L (3.5-5.0) g/dL Assessment and Plan (1) Choledocholithiasis Status: Acute Code(s): K80.50 - CALCULUS OF BILE DUCT W/O CHOLANGITIS OR CHOLECYST W/O OBST SNOMED Code(s): 835927125 (2) Cholelithiasis Status: Acute Code(s): K80.20 - CALCULUS OF GALLBLADDER W/O CHOLECYSTITIS W/O OBSTRUCTION SNOMED Code(s): 385843840 (3) Chronic cholecystitis due to cholelithiasis with choledocholithiasis Status: Acute Code(s): K80.64 - CALCULUS OF GB AND BILE DUCT W CHRONIC CHOLECYST W/O OBST SNOMED Code(s): 1876583036158549
--- NOTE | 2020-07-05 17:02 | P.PN ---
Subjective Progress Note Date: 07/05/20 Principal diagnosis: Abdominal pain Cholelithiasis Elevated liver enzymes Status post ERCP 69-year-old female with a history of nonischemic cardiopathy, hypertension and hyperlipidemia. She presented to the emergency room with complaints of right upper quadrant pain that radiates to the left and all way around the back. She describes it as a burning sensation and rate the pain 10 out of 10. She reports symptoms started around noon yesterday and continued to progressively get worse. She reports that for a while now she does get pain after eating. She denies any vomiting or fever. She has been having regular bowel movements. She reports that her pain is better since coming into the hospital. Ultrasound of the gallbladder showed numerous gallstones. Large common bile duct. But no dilation seen of the intrahepatic bile ducts. Her total bilirubin and LFTs are elevated. Patient underwent ERCP with sphincterotomy; no cough and bile duct stones were found; GI recommending repeat liver enzymes tomorrow with possible discharge if remains stable Objective - Vital Signs Vital signs: Vital Signs Temp 97.8 F 07/05/20 08:00 Pulse 63 07/05/20 08:04 Resp 16 07/05/20 08:04 BP 159/71 07/05/20 08:00 Pulse Ox 95 07/05/20 08:00 Intake & Output 07/04/20 07/05/20 07/05/20 18:59 06:59 18:59 Intake Total 1590 240 200 Balance 1590 240 200 Intake: IV 400 Intake, IV Titration 1190 Amount Sodium Chloride 0.9% 1, 1040 000 ml @ 130 mls/hr IV . Q7H42M [facility] Rx#:[id number] cefTRIAXone 1 gm In 50 Sodium Chloride 0.9% 50 ml @ 100 mls/hr IVPB Q24HR [facility] Rx#:[id number] metroNIDAZOLE-NS PMX 500 100 mg In Saline 1 100ml.bag @ 100 mls/hr IVPB Q8H [facility] Rx#:[id number] Oral 240 200 Other: Voiding Method Toilet Toilet Toilet # Voids 2 1 1 - Exam PHYSICAL EXAMINATION: GENERAL: The patient is alert and oriented x3, not in any acute distress. Well developed, well nourished. HEENT: Pupils are round and equally reacting to light. EOMI. No scleral icterus. No conjunctival pallor. Normocephalic, atraumatic. No pharyngeal erythema. No thyromegaly. CARDIOVASCULAR: S1 and S2 present. No murmurs, rubs, or gallops. PULMONARY: Chest is clear to auscultation, no wheezing or crackles. ABDOMEN: Soft, nontender, nondistended, normoactive bowel sounds. No palpable organomegaly. MUSCULOSKELETAL: No joint swelling or deformity. EXTREMITIES: No cyanosis, clubbing, or pedal edema. NEUROLOGICAL: Gross neurological examination did not reveal any focal deficits. SKIN: No rashes. - Labs CBC & Chem 7: 07/05/20 06:51 07/05/20 06:51 Labs: Abnormal Lab Results - Last 24 Hours (Table) 07/05/20 Range/Units 06:51 Chloride 112 H (98-107) mmol/L Calcium 8.2 L (8.4-10.2) mg/dL Total Bilirubin 1.9 H (0.2-1.3) mg/dL AST 100 H (14-36) U/L ALT 204 H (4-34) U/L Total Protein 5.5 L (6.3-8.2) g/dL Albumin 2.9 L (3.5-5.0) g/dL Assessment and Plan Assessment: 1. Cholelithiasis with dilated bile ducts - Patient is status post ERCP with no stones and common bile duct; patient underwent sphincterotomy - GI is following and recommending to the liver enzymes tomorrow with possible discharge if remains stable - Patient cleared for discharge from surgery 2. Hypertension; continue current management 3. Hyperlipidemia; continue with statin therapy once liver enzymes are stable 4. History of nonischemic cardiomyopathy; stable CODE STATUS; full code
[2020-07-05] MEDS: ATORVASTATIN 40 MG TAB PO SCH (20:19)
[2020-07-06] MEDS: ONDANSETRON 4 MG/2 ML VIAL IVP PRN (03:46)
[2020-07-06] MEDS: SODIUM CHLORIDE 0.9% 1,000 ML IV SCH (04:58)
[2020-07-06] MEDS: metroNIDAZOLE-NS PMX 500 MG in SALINE 1 100ML.BAG IVPB SCH (04:58)
[2020-07-06 08:03] LABS: Albumin 3.6 g/dL (3.5-5.0); Bilirubin, Delta 0.2 mg/dL (0.0-0.2); Bilirubin,Unconjugated 1.4 mg/dL (0.0-1.1); Total Bilirubin 1.6 mg/dL (0.2-1.3); Total Protein 6.3 g/dL (6.3-8.2)
[2020-07-06] MEDS: carvediloL 6.25 MG TAB PO SCH (08:04)
[2020-07-06] MEDS: PANTOPRAZOLE 40 MG/10 ML VIAL IVP SCH (08:18)
[2020-07-06] MEDS: lisinopriL 20 MG TAB PO SCH (08:19)
[2020-07-06] MEDS: EZETIMIBE 10 MG TAB PO SCH (08:19)
[2020-07-06 09:29] VITALS: BP 179/76; PULSE 72; RESP 18; TEMP 98.1
--- NOTE | 2020-07-06 11:31 | P.PN ---
Subjective Progress Note Date: 07/06/20 CHIEF COMPLAINT: Gallstones HISTORY OF PRESENT ILLNESS: The patient is a 69-year-old female with symptomatic gallstones. She is status post ERCP. She reports not being a breakfast eater. No reports of abdominal pain. ROS: No reports of nausea and vomiting. No fevers or chills. No new chest pain. No productive sputum PHYSICAL EXAM: VITAL SIGNS: Reviewed CONSTITUTIONAL: Well developed and in no acute distress. EYES: Conjuctivae without sclera icterus. Extraocular movements grossly intact. HEAD, EARS, NOSE, THROAT: Moist buccal mucosa. Head is atraumatic, normocephalic. Hears conversational speech. No nasal drainage. NECK: Supple. No thyroidomegaly. RESPIRATORY: Non-labored respirations and equal bilateral excursions. CARDIOVASCULAR: Palpable 2+ radial pulses. Regular rate. Regular rhythm. ABDOMEN: No peritonitis MUSCULOSKELETAL: No gross deformity of the lower extremities noted. No clubbing. No cyanosis. SKIN: Good skin turgor. Well perfused. NEUROLOGIC: Cranial nerves II through XII grossly intact. No focal or lateralizing signs. PSYCH: Appropriate affect. Alert and oriented to person, place and time. CLINICAL LABS: Reviewed. LFTs are improving ASSESSMENT: 1. Symptomatic gallstones PLAN: 1. Stable for discharge from a surgical standpoint. 2. Patient reinforced low fat diet 3. Outpatient cholecystectomy reviewed. Objective - Vital Signs Vital signs: Vital Signs Temp 98.1 F 07/06/20 09:00 Pulse 72 07/06/20 09:00 Resp 18 07/06/20 09:00 BP 179/76 07/06/20 09:00 Pulse Ox 96 07/06/20 09:00 Intake & Output 07/05/20 07/06/20 07/06/20 18:59 06:59 18:59 Intake Total 200 960 Balance 200 960 Intake: Oral 200 960 Other: Voiding Method Toilet Toilet # Voids 1 2 - Labs CBC & Chem 7: 07/05/20 06:51 07/05/20 06:51 Labs: Abnormal Lab Results - Last 24 Hours (Table) 07/06/20 Range/Units 07:30 Total Bilirubin 1.6 H (0.2-1.3) mg/dL Unconjugated Bilirubin 1.4 H (0.0-1.1) mg/dL AST 56 H (14-36) U/L ALT 147 H (4-34) U/L Assessment and Plan (1) Choledocholithiasis Status: Acute Code(s): K80.50 - CALCULUS OF BILE DUCT W/O CHOLANGITIS OR CHOLECYST W/O OBST SNOMED Code(s): 435807263 (2) Cholelithiasis Status: Acute Code(s): K80.20 - CALCULUS OF GALLBLADDER W/O CHOLECYSTITIS W/O OBSTRUCTION SNOMED Code(s): 713554737 (3) Chronic cholecystitis due to cholelithiasis with choledocholithiasis Status: Acute Code(s): K80.64 - CALCULUS OF GB AND BILE DUCT W CHRONIC CHOLECYST W/O OBST SNOMED Code(s): 2454815768831642 (4) Hyperbilirubinemia Status: Acute Code(s): E80.6 - OTHER DISORDERS OF BILIRUBIN METABOLISM SNOMED Code(s): 01630266
--- NOTE | 2020-07-06 11:55 | PN ---
PROGRESS NOTE DATE OF DICTATION: July 06, 2020. REQUESTING PHYSICIAN: Dr. Rene Phelan. HISTORY: The patient is a 69-year-old pleasant white female admitted to hospital with abdominal pain, elevated LFTs and jaundice. She had an ERCP done 2 days ago with biliary sphincterotomy and balloon sweep. She is doing better. She had some nausea last night. Overall feeling better. Vague epigastric discomfort. She reports no fever, chills, or night sweats, on a regular diet tolerating well. PHYSICAL EXAMINATION: Appears comfortable, no apparent distress. Vital signs stable. Blood pressure 139/85, pulse rate 62 and afebrile. HEENT examination unremarkable. Conjunctivae pink. Sclerae anicteric. Oral cavity no lesions. NECK no JVD or lymph node enlargement. CHEST was clear to auscultation. HEART: Regular rate and rhythm. ABDOMEN: Soft. Bowel sounds are positive. No organomegaly. EXTREMITIES: No pedal edema. SKIN no rashes. NEURO: She is alert and oriented x3. No focal deficits. LABS: No labs available from today. Yesterday bilirubin is down to 1.9. ALT and AST are improving. RECOMMENDATIONS: 1. Continue antiemetics as needed. 2. Advance diet as tolerated. 3. Low-fat diet. 4. She can be discharged home today with outpatient followup with Dr. German for laparoscopic cholecystectomy. MMODL / IJN: [id number] /
--- NOTE | 2020-07-21 21:40 | P.DS ---
Providers Date of admission: 07/03/20 20:13 Expected date of discharge: 07/06/20 Attending physician: Rene Phelan Consults: 07/03/20 20:13 Consult Physician Routine Consulting Provider: Samuel German Consult Reason/Comments: Cholelithiasis, hyperbilirubinemia Do you want consulting provider notified?: Yes Consult Physician Routine Consulting Provider: Emma Gonzalez Consult Reason/Comments: Hyperbilirubinemia, gallstones, dilated bile duct Do you want consulting provider notified?: Yes Primary care physician: Rene Phelan [facility] Course: 69-year-old female with a history of nonischemic cardiopathy, hypertension and hyperlipidemia. She presented to the emergency room with complaints of right upper quadrant pain that radiates to the left and all way around the back. She describes it as a burning sensation and rate the pain 10 out of 10. She reports symptoms started around noon yesterday and continued to progressively get worse. She reports that for a while now she does get pain after eating. She denies any vomiting or fever. She has been having regular bowel movements. She reports that her pain is better since coming into the hospital. Ultrasound of the gallbladder showed numerous gallstones. Large common bile duct. But no dilation seen of the intrahepatic bile ducts. Her total bilirubin and LFTs are elevated. Patient underwent ERCP with sphincterotomy; no cough and bile duct stones were found; GI recommending repeat liver enzymes tomorrow with possible discharge if remains stable Patient Condition at Discharge: Stable Plan - Discharge Summary New Discharge Prescriptions: Continue lisinopriL 20 mg PO BID carvediloL [Coreg] 6.25 mg PO BID Ezetimibe [Zetia] 10 mg PO DAILY Atorvastatin [Lipitor] 40 mg PO HS No Action Acetaminophen-Codeine 300-30mg [Tylenol w/codeine #3] 1 tab PO Q4H PRN 3 Days #6 tablet PRN Reason: Pain Discharge Medication List Atorvastatin [Lipitor] 40 mg PO HS 07/03/20 [History] Ezetimibe [Zetia] 10 mg PO DAILY 07/03/20 [History] carvediloL [Coreg] 6.25 mg PO BID 07/03/20 [History] lisinopriL 20 mg PO BID 07/03/20 [History] Acetaminophen-Codeine 300-30mg [Tylenol w/codeine #3] 1 tab PO Q4H PRN 3 Days #6 tablet 07/17/20 [Rx] Follow up Appointment(s)/Referral(s): Samuel German MD [Medical Doctor] - 3 Days Rene Phelan DO [Primary Care Provider] - 1-2 days Patient Instructions/Handouts: Gallstones (ED), Low Fat Diet (DC) Discharge Disposition: HOME SELF-CARE
== END 2020-07-06 12:49 | disposition home or self-care (01) ==
LOC: EC 15:43 → 1SOBS 20:13
PROVIDERS: ADMIT Family Medicine; ATTEND Family Medicine
DX: K83.8 Other specified diseases of biliary tract (principal); K59.00 Constipation, unspecified; E80.6 Other disorders of bilirubin metabolism; I42.8 Other cardiomyopathies; E78.5 Hyperlipidemia, unspecified; I10 Essential (primary) hypertension; I49.1 Atrial premature depolarization; K08.409 Partial loss of teeth, unspecified cause, unspecified class; K08.89 Other specified disorders of teeth and supporting structures; Z79.899 Other long term (current) drug therapy; Z98.51 Tubal ligation status
CPT/HCPCS: 96366 ×2; 96367; 96376; 96365; 96375; 99285; 36415; 93005; 80053 ×3; 80076; 83690 ×2; 83735; 84484; 85025 ×3; 85610; 85730; 74328; 71046; 76705; 43277; G0378 ×4; J2250; J2765; J2405 ×2; J2001; J0696 ×4; J3010; J2704; C9113 ×4; J1170; Q9967; 43260; 43262

== ENCOUNTER 2020-07-17 11:00 | Day surgery (SDC) | payer MEDICARE ==
[2020-07-15 09:31] VITALS: BMI 25.8
[~2020-07-17 11:00] MED LIST: ACETAMINOPHEN TAB 500 MG TAB PO ONE; DEXAMETHASONE SOD PHOSPHATE 10 MG/ML 1 ML VIAL IV ONE; HEPARIN SODIUM,PORCINE 5,000 UNIT/ML 1 ML VIAL SQ ONE; HYDROmorphone 0.5 MG/0.5 ML SYRINGE IVP PRN; LACTATED RINGERS 1,000 ML IV SCH; ONDANSETRON 4 MG/2 ML VIAL IVP ONE
[2020-07-17] MEDS ORDERED: LIDOCAINE 1% (10MG/ML) FOR IV START INTRADERMA ONE (11:31)
[2020-07-17] MEDS ORDERED: MIDAZOLAM 2 MG/2 ML VIAL IV ONE (12:08)
--- NOTE | 2020-07-17 12:39 | P.GSHP ---
History of Present Illness H&P Date: 07/17/20 Chief Complaint: cholecystitis Patient recently hospitalized with dark urine and right upper quadrant pain. Patient was found to have elevated liver enzymes and then underwent ERCP. ERCP showed slightly dilated common bile duct with possible distal filling defect. No definite stone was seen however the patient did respond nicely to the ERCP. She was discharged home with plans for outpatient elective cholecystectomy. Doing better as far as the pain goes. Her urine was dark in color while she was hospitalized for that reason obtained a normal color. Some nausea at times. Repeat labs from today are pending. Previous ultrasound showed gallstones. Past Medical History Past Medical History: Hyperlipidemia, Hypertension Additional Past Medical History / Comment(s): CHOLELITHIASIS. CARDIOMYOPATHY History of Any Multi-Drug Resistant Organisms: None Reported Past Surgical History: Tubal Ligation Additional Past Surgical History / Comment(s): BILAT CATARACTS REMOVED WITH LENS IMPLANTS Past Anesthesia/Blood Transfusion Reactions: No Reported Reaction Past Psychological History: No Psychological Hx Reported Smoking Status: Never smoker Past Alcohol Use History: None Reported Past Drug Use History: None Reported - Past Family History Mother Family Medical History: No Reported History Medications and Allergies Home Medications Medication Instructions Recorded Confirmed Type Atorvastatin [Lipitor] 40 mg PO HS 07/03/20 07/15/20 History Ezetimibe [Zetia] 10 mg PO DAILY 07/03/20 07/15/20 History carvediloL [Coreg] 6.25 mg PO BID 07/03/20 07/15/20 History lisinopriL 20 mg PO BID 07/03/20 07/15/20 History Allergies Allergy/AdvReac Type Severity Reaction Status Date / Time hydromorphone [From Dilaudid] Allergy Nausea & Verified 07/17/20 11:34 Vomiting Surgical - Exam Vital Signs Temp Pulse Resp BP Pulse Ox 98.2 F 63 20 144/85 97 07/17/20 11:41 07/17/20 11:41 07/17/20 11:41 07/17/20 11:41 07/17/20 11:41 Physical exam: General: Well-developed, well-nourished HEENT: Normocephalic, sclerae nonicteric Abdomen: Nontender, nondistended Extremities: No edema Neuro: Alert and oriented Assessment and Plan (1) Chronic cholecystitis due to cholelithiasis with choledocholithiasis Narrative/Plan: Will proceed with laparoscopic cholecystectomy, possible open cholecystectomy at this time. We'll check preoperative CMP as well. Risks of bleeding, infection, bile leak, bile duct injury, retained common bile duct stone, trocar injury, conversion to an open procedure, hernia, anesthesia related complications were reviewed. The patient understands and wishes to proceed. Current Visit: Yes Status: Acute Code(s): K80.64 - CALCULUS OF GB AND BILE DUCT W CHRONIC CHOLECYST W/O OBST SNOMED Code(s): 5508400109043418
[2020-07-17] MEDS ORDERED: ROCURONIUM BROMIDE 10 MG/ML 5 ML VIAL IV ONE (12:47)
[2020-07-17] MEDS ORDERED: MIDAZOLAM 2 MG/2 ML VIAL ONE (12:47)
[2020-07-17] MEDS ORDERED: PHENYLEPHRINE-0.9% NACL SYG 1 MG/10 ML SYRINGE ONE (12:47)
[2020-07-17] MEDS ORDERED: LIDOCAINE 1% INJ 10MG/ML (20 ML MDV) ONE (12:47)
[2020-07-17] MEDS ORDERED: NEOSTIGMINE 1 MG/ML 10 ML VIAL ONE (12:47)
[2020-07-17] MEDS ORDERED: PROPOFOL 10 MG/ML 20 ML VIAL IV ONE (12:47)
[2020-07-17] MEDS ORDERED: fentaNYL (PF) 50 MCG/ML 2 ML AMP ONE (12:47)
[2020-07-17] MEDS ORDERED: GLYCOPYRROLATE 0.2 MG/ML 2 ML VIAL ONE (12:47)
[2020-07-17] MEDS ORDERED: SUCCINYLCHOLINE CHLORIDE 100 MG/5 ML SYR IV ONE (12:47)
[2020-07-17 13:06] LABS: Albumin 3.8 g/dL (3.5-5.0); Calcium 9.4 mg/dL (8.4-10.2); Total Bilirubin 1.2 mg/dL (0.2-1.3); Total Protein 6.8 g/dL (6.3-8.2)
[2020-07-17] MEDS ORDERED: BUPIVACAINE (PF) 0.25% 30 ML VIAL SQ ONE ×2 (13:14)
[2020-07-17 14:20] VITALS: TEMP 97.9
[2020-07-17] MEDS ORDERED: NALOXONE 0.4 MG/ML 1 ML VIAL IV PRN (14:33)
[2020-07-17] MEDS ORDERED: HYDROcodone/APAP 5-325MG 1 EACH TAB PO PRN (14:33)
--- NOTE | 2020-07-17 14:37 | P.OP ---
Date of Procedure: 07/17/20 Procedure(s) Performed: PREOPERATIVE DIAGNOSIS: Chronic cholecystitis with history of suspected choledocholithiasis POSTOPERATIVE DIAGNOSIS: Same PROCEDURE: Laparoscopic cholecystectomy SURGEON: Monserrat EBL: 25 Faiza ANESTHESIA: Gen. COMPLICATIONS: None OPERATIVE PROCEDURE: The patient was brought and placed on the operating room table in the supine position. The patient was placed under general anesthesia at that time. The abdomen was prepped and draped in the usual sterile fashion. A small vertical infraumbilical incision was made. The fascia was grasped with the Bebeto forceps. The fascia was retracted anteriorly. The Veress needle was advanced into the peritoneal cavity. The saline drop test was normal. Insufflation took place up to 15 mmHg. A 5 mm optical trocar was advanced and the peritoneal cavity. 2 additional 5 mm trochars were placed in the right upper quadrant under direct visualization. A 12 mm trocar was advanced into the epigastric incision site. The gallbladder was chronically inflamed with a thickened wall. The gallbladder was retracted superiorly and laterally. The peritoneum overlying the infundibulum was bluntly dissected. The patient's cystic duct was visualized. The junction between the cystic duct common and hepatic duct was identified. The cystic duct was somewhat more prominent in size because of the inflammatory changes and the recent passage of a stone. A 2-0 Ethibond stitch was used to ligate the cystic duct on the patient's side with a tie knot. An additional 2 clips were placed on the patient's side and one clip on the specimen side. The cystic artery was identified and clipped as well. A small vessel was seen along the gallbladder fossa and clipped as well. The gallbladder was then removed from the liver bed using electrocautery. The gallbladder was then removed from the epigastric trocar site with an Endo Catch bag. In order to remove the gallbladder the skin incision and fascia was lengthened. The gallbladder fossa was irrigated with saline. There was no evidence of any bleeding or biliary drainage seen. The fascia at the 12 millimeter site was closed using a running 0 Vicryl stitch. The trochars were then removed. The skin at all 4 sites was closed using a 4-0 Monocryl stitch. Skin glue was utilized on the incision sites. At the end of this procedure the sponge and needle counts were correct. DISPOSITION: Stable to the recovery room
[2020-07-17] MEDS ORDERED: fentaNYL (PF) 50 MCG/ML 2 ML AMP IVP ONE ×2 (14:52→15:00)
[2020-07-17] MEDS ORDERED: LACTATED RINGERS 1,000 ML IV ONE (15:08)
[2020-07-17] MEDS ORDERED: ONDANSETRON 4 MG/2 ML VIAL ONE (16:03)
[2020-07-17] MEDS ORDERED: ONDANSETRON 4 MG/2 ML VIAL IVP ONE (16:04)
[2020-07-17] MEDS ORDERED: SCOPOLAMINE 1.5MG/72HR PATCH TRANSDERM ONE (16:40)
[2020-07-17] MEDS ORDERED: PROMETHAZINE INJ 25 MG/ML 1 ML VIAL IVPB ONE (16:44)
[2020-07-17 18:13] VITALS: RESP 16
[2020-07-17] MEDS ORDERED: KETOROLAC 15 MG/ML 1 ML VIAL ONE (18:26)
[2020-07-17] MEDS ORDERED: KETOROLAC 15 MG/ML 1 ML VIAL IVP ONE (18:27)
[2020-07-17] MEDS ORDERED: hydrALAZINE HCL 20 MG/ML 1 ML VIAL ONE (19:28)
[2020-07-17] MEDS ORDERED: hydrALAZINE HCL 20 MG/ML 1 ML VIAL IVP ONE (19:31)
[2020-07-17 19:44] VITALS: BP 168/74; PULSE 77
== END 2020-07-17 20:17 | disposition home or self-care (01) ==
LOC: OR 11:00
PROVIDERS: ATTEND Surgery
DX: K80.12 Calculus of gallbladder with acute and chronic cholecystitis without obstruction (principal); I42.9 Cardiomyopathy, unspecified; I10 Essential (primary) hypertension; E78.5 Hyperlipidemia, unspecified; K21.9 Gastro-esophageal reflux disease without esophagitis; Z88.5 Allergy status to narcotic agent; Z79.02 Long term (current) use of antithrombotics/antiplatelets; Z79.899 Other long term (current) drug therapy; Z98.41 Cataract extraction status, right eye; Z98.42 Cataract extraction status, left eye; Z98.51 Tubal ligation status; Z96.1 Presence of intraocular lens
CPT/HCPCS: 88304; 80053; 47562; J2250; J0360; J1644; J1100; J2550; J2710; J0690; J2405; J2001; J3010; J1885; J2370; J0330; J2704

== ENCOUNTER 2022-07-16 22:23 | Inpatient (IN) | payer MEDICARE ==
[2022-07-16] MEDS ORDERED: MORPHINE SULFATE 2 MG/ML SYRINGE IVP STA ×2 (22:27→23:07)
[2022-07-16] MEDS ORDERED: MORPHINE SULFATE 2 MG/ML SYRINGE IVP PRN (22:27)
[2022-07-16] MEDS ORDERED: IPRATROPIUM-ALBUTEROL 3 ML NEB INHALATION STA (22:27)
[2022-07-16] MEDS ORDERED: ENALAPRILAT 1.25 MG/ML 1 ML VIAL IVP STA (22:27)
[2022-07-16] MEDS ORDERED: SODIUM CHLORIDE 0.9% 1,000 ML IV STA (22:27)
--- NOTE | 2022-07-16 22:28 | ED ---
SOB HPI - General Stated Complaint: Chest Pain, SOB Time Seen by Provider: 07/16/22 22:26 Source: RN notes reviewed, old records reviewed Mode of arrival: EMS Limitations: no limitations - History of Present Illness Initial Comments: 71-year-old female poor historian secondary to clinical condition of severe shortness of breath. History obtained from prior charting. Patient has history of CHF and heart failure patient coming in severe respiratory distress MD Complaint: shortness of breath, cough, chest pain, anxiety -: hour(s) Severity: severe Severity scale (1-10): 9 Quality: dull Consistency: constant Improves With: nothing Worsens With: nothing Known History Of: COPD, asthma, congestive heart failure Context: recent URI, anxiety, recent illness Associated Symptoms: chest pain, pain with inspiration, cough, sputum production Treatments Prior to Arrival: oxygen - Related Data Home Medications Medication Instructions Recorded Confirmed Atorvastatin [Lipitor] 40 mg PO HS 07/03/20 07/17/22 Ezetimibe [Zetia] 10 mg PO DAILY 07/03/20 07/17/22 carvediloL [Coreg] 6.25 mg PO BID 07/03/20 07/17/22 lisinopriL 20 mg PO BID 07/03/20 07/17/22 Allergies Allergy/AdvReac Type Severity Reaction Status Date / Time hydromorphone [From Dilaudid] Allergy Nausea & Verified 07/16/22 22:38 Vomiting Review of Systems ROS Statement: Those systems with pertinent positive or pertinent negative responses have been documented in the HPI. ROS Other: All systems not noted in ROS Statement are negative. Past Medical History Past Medical History: Hyperlipidemia, Hypertension Additional Past Medical History / Comment(s): CHOLELITHIASIS. CARDIOMYOPATHY History of Any Multi-Drug Resistant Organisms: None Reported Past Surgical History: Tubal Ligation Additional Past Surgical History / Comment(s): BILAT CATARACTS REMOVED WITH LENS IMPLANTS Past Anesthesia/Blood Transfusion Reactions: No Reported Reaction Past Psychological History: No Psychological Hx Reported Smoking Status: Never smoker Past Alcohol Use History: None Reported Past Drug Use History: None Reported - Past Family History Mother Family Medical History: No Reported History General Exam General appearance: alert, in no apparent distress, anxious Head exam: Present: atraumatic, normocephalic, normal inspection Eye exam: Present: normal appearance, PERRL, EOMI. Absent: scleral icterus, conjunctival injection, periorbital swelling ENT exam: Present: normal exam, mucous membranes moist Neck exam: Present: normal inspection. Absent: tenderness, meningismus, lymphadenopathy Respiratory exam: Present: respiratory distress, wheezes, rales, rhonchi, accessory muscle use, decreased breath sounds, prolonged expiratory. Absent: stridor Cardiovascular Exam: Present: regular rate, normal rhythm, normal heart sounds. Absent: systolic murmur, diastolic murmur, rubs, gallop, clicks GI/Abdominal exam: Present: soft, normal bowel sounds. Absent: distended, tenderness, guarding, rebound, rigid Extremities exam: Present: normal inspection, full ROM, normal capillary refill. Absent: tenderness, pedal edema, joint swelling, calf tenderness Back exam: Present: normal inspection Neurological exam: Present: alert, oriented X3, CN II-XII intact Psychiatric exam: Present: normal affect, normal mood Skin exam: Present: warm, dry, intact, normal color. Absent: rash Course Vital Signs 07/16/22 07/16/22 07/16/22 22:38 23:00 23:30 Temperature 97.5 F L Pulse Rate 84 93 86 Respiratory 24 27 H 22 Rate Blood Pressure 175/131 138/82 101/74 O2 Sat by Pulse 99 98 93 L Oximetry Fraction of 100 Inspired Oxygen (FIO2) 07/17/22 00:00 Temperature Pulse Rate 83 Respiratory 20 Rate Blood Pressure 120/77 O2 Sat by Pulse 95 Oximetry Fraction of Inspired Oxygen (FIO2) - Reevaluation(s) Reevaluation #1: 07/16/22 medical record is reviewed patient symptoms improved here in the ER patient informed of results and questions answered - Consultations Consultation #1: Spoke with admitting physicians will admit this patient Medical Decision Making - Medical Decision Making 71 female to the emergency department for evaluation patient presents today for evaluation regards to shortness of breath severe. Review patient has shortness of breath in relation of CHF and pulmonary edema - Lab Data Result diagrams: 07/18/22 05:19 07/18/22 05:19 Lab Results 07/16/22 07/16/22 07/16/22 Range/Units 22:32 22:32 22:32 WBC 15.6 H (3.8-10.6) k/uL RBC 5.66 H (3.80-5.40) m/uL Hgb 16.4 H (11.4-16.0) gm/dL Hct 51.3 H (34.0-46.0) % MCV 90.7 (80.0-100.0) fL MCH 29.1 (25.0-35.0) pg MCHC 32.1 (31.0-37.0) g/dL RDW 13.2 (11.5-15.5) % Plt Count 368 (150-450) k/uL MPV 9.2 Neutrophils % (Manual) 43 % Band Neuts % (Manual) 1 % Lymphocytes % (Manual) 50 % Monocytes % (Manual) 6 % Neutrophils # (Manual) 6.80 (1.3-7.7) k/uL Lymphocytes # (Manual) 7.80 H (1.0-4.8) k/uL Monocytes # (Manual) 0.94 (0-1.0) k/uL Nucleated RBCs 0 (0-0) /100 WBC Differential Comment Manual Slide Review Performed Poikilocytosis (manual Present Anisocytosis (manual) Present Ovalocytes Present PT 10.7 (9.0-12.0) sec INR 1.0 (<1.2) APTT 22.5 (22.0-30.0) sec Sodium 143 (137-145) mmol/L Potassium 4.8 (3.5-5.1) mmol/L Chloride 101 (98-107) mmol/L Carbon Dioxide 19 L (22-30) mmol/L Anion Gap 23 mmol/L BUN 15 (7-17) mg/dL Creatinine 1.18 H (0.52-1.04) mg/dL Est GFR (CKD-EPI)AfAm 55 (>60 ml/min/1.73 sqM) Est GFR (CKD-EPI)NonAf 47 (>60 ml/min/1.73 sqM) Glucose 257 H (74-99) mg/dL Calcium 9.8 (8.4-10.2) mg/dL Magnesium 2.4 H (1.6-2.3) mg/dL Total Bilirubin 2.1 H (0.2-1.3) mg/dL AST 26 (14-36) U/L ALT 26 (4-34) U/L Alkaline Phosphatase 113 (38-126) U/L Troponin I (0.000-0.034) ng/mL NT-Pro-B Natriuret Pep pg/mL Total Protein 8.3 H (6.3-8.2) g/dL Albumin 4.8 (3.5-5.0) g/dL 07/16/22 07/16/22 Range/Units 22:32 22:32 WBC (3.8-10.6) k/uL RBC (3.80-5.40) m/uL Hgb (11.4-16.0) gm/dL Hct (34.0-46.0) % MCV (80.0-100.0) fL MCH (25.0-35.0) pg MCHC (31.0-37.0) g/dL RDW (11.5-15.5) % Plt Count (150-450) k/uL MPV Neutrophils % (Manual) % Band Neuts % (Manual) % Lymphocytes % (Manual) % Monocytes % (Manual) % Neutrophils # (Manual) (1.3-7.7) k/uL Lymphocytes # (Manual) (1.0-4.8) k/uL Monocytes # (Manual) (0-1.0) k/uL Nucleated RBCs (0-0) /100 WBC Differential Comment Manual Slide Review Poikilocytosis (manual Anisocytosis (manual) Ovalocytes PT (9.0-12.0) sec INR (<1.2) APTT (22.0-30.0) sec Sodium (137-145) mmol/L Potassium (3.5-5.1) mmol/L Chloride (98-107) mmol/L Carbon Dioxide (22-30) mmol/L Anion Gap mmol/L BUN (7-17) mg/dL Creatinine (0.52-1.04) mg/dL Est GFR (CKD-EPI)AfAm (>60 ml/min/1.73 sqM) Est GFR (CKD-EPI)NonAf (>60 ml/min/1.73 sqM) Glucose (74-99) mg/dL Calcium (8.4-10.2) mg/dL Magnesium (1.6-2.3) mg/dL Total Bilirubin (0.2-1.3) mg/dL AST (14-36) U/L ALT (4-34) U/L Alkaline Phosphatase (38-126) U/L Troponin I <0.012 (0.000-0.034) ng/mL NT-Pro-B Natriuret Pep 1750 pg/mL Total Protein (6.3-8.2) g/dL Albumin (3.5-5.0) g/dL - EKG Data -: EKG Interpreted by Me (EKG is sinus 87 MN 165 QRS 100 QTc 426) Disposition Clinical Impression: Congestive heart failure, Acute pulmonary edema, Acute respiratory failure Disposition: ADMITTED IP TO THIS HOSP Condition: Fair Is patient prescribed a controlled substance at d/c from ED?: No Time of Disposition: 00:20
[2022-07-16 22:50] LABS: HCT 51.3 % (34.0-46.0); HGB 16.4 gm/dL (11.4-16.0); MCH 29.1 pg (25.0-35.0); MCHC 32.1 g/dL (31.0-37.0); MCV 90.7 fL (80.0-100.0); Mean Platelet Volume 9.2; Platelet Count 368 k/uL (150-450); RBC 5.66 m/uL (3.80-5.40); RDW 13.2 % (11.5-15.5); WBC 15.6 k/uL (3.8-10.6)
[2022-07-16 22:59] LABS: Albumin 4.8 g/dL (3.5-5.0); Calcium 9.8 mg/dL (8.4-10.2); Magnesium 2.4 mg/dL (1.6-2.3); Potassium 4.8 mmol/L (3.5-5.1); Total Bilirubin 2.1 mg/dL (0.2-1.3); Total Protein 8.3 g/dL (6.3-8.2)
[2022-07-16] MEDS ORDERED: ONDANSETRON 4 MG/2 ML VIAL IVP STA (23:07)
[2022-07-16 23:16] LABS: Band Neutrophils % 1 %; Monocytes # (M) 0.94 k/uL (0-1.0); Neutrophils % (M) 43 %; Nucleated Red Blood Cells 0 /100 WBC (0-0); Total Cells Counted 100
[2022-07-16 23:18] LABS: Anisocytosis (M) Present; Ovalocytes Present; Poikilocytosis (M) Present
--- NOTE | 2022-07-16 23:21 | XR ---
EXAMINATION TYPE: XR chest 1V portable DATE OF EXAM: 07/16/2022 COMPARISON: 07/03/2020 HISTORY: Short of breath TECHNIQUE: Single view FINDINGS: Heart is enlarged. There is moderate pulmonary interstitial and airspace edema. There are c hest leads. There is slight blunting of the costophrenic angles. IMPRESSION: Cardiomegaly and pulmonary edema are consistent with acute heart failure. This is a gasca e compared to old exam.
[2022-07-16 23:24] LABS: Partial Thromboplastin Time 22.5 sec (22.0-30.0); Prothrombin Time 10.7 sec (9.0-12.0)
[2022-07-17] MEDS ORDERED: IPRATROPIUM-ALBUTEROL 3 ML NEB INHALATION PRN (00:21)
[2022-07-17] MEDS: FUROSEMIDE 10 MG/ML 4 ML VIAL IV SCH ×4 (02:04→23:54)
[2022-07-17 11:15] LABS: Basophils # (A) 0.1 k/uL (0-0.2); Basophils % (A) 0 %; Eosinophils # (A) 0.1 k/uL (0-0.7); Eosinophils % (A) 1 %; HCT 44.1 % (34.0-46.0); HGB 13.9 gm/dL (11.4-16.0); Hypochromasia Slight; Lymphocytes # (A) 1.6 k/uL (1.0-4.8); Lymphocytes % (A) 10 %; MCH 28.8 pg (25.0-35.0); MCHC 31.6 g/dL (31.0-37.0); MCV 91.3 fL (80.0-100.0); Mean Platelet Volume 9.7; Monocytes # (A) 0.5 k/uL (0-1.0); Monocytes % (A) 3 %; Neutrophils % (A) 85 %; Platelet Count 293 k/uL (150-450); RBC 4.83 m/uL (3.80-5.40); RDW 13.2 % (11.5-15.5); WBC 15.4 k/uL (3.8-10.6)
[2022-07-17 11:42] LABS: Calcium 9.1 mg/dL (8.4-10.2); Potassium 4.2 mmol/L (3.5-5.1)
--- NOTE | 2022-07-17 11:51 | P.CRDCN ---
History of Present Illness Consult date: 07/17/22 History of present illness: Patient is a pleasant 71-year-old female with a known history of hypertension, hyperlipidemia, and cardiomyopathy. Patient follows with Dr. Chandler in the office. We have been consult that C the patient for acute on chronic congestive heart failure. Patient initially presented to the ER with increased shortness of breath and chest pain. Her EKG shows sinus rhythm with PVCs. Troponins have been negative 3. Blood pressure has been well-controlled 120/56 and heart rate 59. She was started on IV Lasix 40 mg every 8. She reports that she has followed with Dr. Chandler for years and she had a cath quite some time ago she's not sure when. She had a positive stress test and underwent cardiac catheterization here at [facility] and was told everything was okay did not receive any intervention at that time. She also reports she had a echocardiogram prior this year and her ejection fraction was 45%. Patient examined today sitting on the side of the bed, she denies any increased shortness of breath or chest pain. Chest x-ray shows cardiomegaly and pulmonary edema consistent with acute heart failure. We will obtain a 2-D echocardiogram to assess LV function. Will continue with IV Lasix. Review of Systems REVIEW OF SYSTEMS At the time of my exam: CONSTITUTIONAL: Denies fever or chills. EYES: Negative for vision changes ENT: Negative for hearing loss CARDIOVASCULAR: Denies chest pain, shortness of breath, diaphoresis, orthopnea, PND or palpitations. VASCULAR: Denies edema RESPIRATORY: Denies cough. GASTROINTESTINAL: Denies abdominal pain, diarrhea, constipation, nausea or vomiting. MUSCULOSKELETAL: Denies myalgias. NEUROLOGIC: Denies numbness, tingling, headache or weakness. ENDOCRINE: Denies fatigue, weight change, polydipsia or polyurina. GENITOURINARY: Denies burning, hematuria or urgency with micturation. HEMATOLOGIC: Denies history of anemia or bleeding. DERMATOLOGY: Denies rash or skin sores PSYCH: Negative for depression or hallucinations. Past Medical History Past Medical History: Heart Failure, Hyperlipidemia, Hypertension Additional Past Medical History / Comment(s): CHOLELITHIASIS. CARDIOMYOPATHY History of Any Multi-Drug Resistant Organisms: None Reported Past Surgical History: Cholecystectomy, Tubal Ligation Additional Past Surgical History / Comment(s): BILAT CATARACTS REMOVED WITH LENS IMPLANTS Past Anesthesia/Blood Transfusion Reactions: No Reported Reaction Past Psychological History: No Psychological Hx Reported Smoking Status: Never smoker Past Alcohol Use History: Occasional Past Drug Use History: None Reported - Past Family History Mother Family Medical History: No Reported History Medications and Allergies Home Medications Medication Instructions Recorded Confirmed Type Atorvastatin [Lipitor] 40 mg PO HS 07/03/20 07/17/22 History Ezetimibe [Zetia] 10 mg PO DAILY 07/03/20 07/17/22 History carvediloL [Coreg] 6.25 mg PO BID 07/03/20 07/17/22 History lisinopriL 20 mg PO BID 07/03/20 07/17/22 History Allergies Allergy/AdvReac Type Severity Reaction Status Date / Time hydromorphone [From Dilaudid] Allergy Nausea & Verified 07/16/22 22:38 Vomiting Physical Exam Vitals: Vital Signs Temp Pulse Pulse Resp BP BP Pulse Ox 07/17/22 07:35 98.7 F 58 L 18 118/65 98 07/17/22 04:00 97.5 F L 59 L 12 120/56 98 07/17/22 01:46 97.5 F L 100 14 133/73 98 07/17/22 00:00 83 20 120/77 95 07/16/22 23:30 86 22 101/74 93 L 07/16/22 23:00 93 27 H 138/82 98 07/16/22 22:38 97.5 F L 84 24 175/131 99 FiO2 07/17/22 07:35 07/17/22 04:00 07/17/22 01:46 07/17/22 00:00 07/16/22 23:30 07/16/22 23:00 07/16/22 22:38 100 Intake and Output 07/16/22 07/17/22 07/17/22 22:59 06:59 14:59 Intake Total 5 Balance 5 Intake: IV 5 Invasive Line 1 5 Other: Voiding Method Toilet Toilet Diaper Diaper # Voids 1 Weight 113.398 kg 79.3 kg PHYSICAL EXAMINATION VITAL SIGNS: Reviewed General: The patient is awake and alert, in no distress, and does not appear acutely ill. Skin: Skin is warm and dry and no rashes or lesions are noted. Eye: Pupils are equal, round and reactive to light, extra-ocular movements are intact; there is normal conjunctiva bilaterally. Ears, nose, mouth and throat: There are moist mucous membranes and no oral lesions. Neck: The neck is supple, there is no tenderness or JVD. Cardiovascular: There is irregular regular rate and rhythm. No murmur, rub or gallop is appreciated. Respiratory: Lungs are clear to auscultation, respirations are non-labored, breath sounds are equal. Gastrointestinal: Soft, non-distended, non-tender abdomen without masses or organomegaly noted. There is no rebound or guarding present. Bowel sounds are unremarkable. Back: There is no tenderness to palpation in the midline. There is no obvious deformity. Musculoskeletal: Normal ROM, no tenderness, There is no pedal edema. There is no calf tenderness or swelling. Extremities: Mild bilateral pitting edema Vascular: Femoral pulse is normal. Posterior tibial pulses are normal .Dorsalis pedis is palpable. Neurological: CN II-XII intact. There are no obvious motor or sensory deficits. Speech is normal. Psychiatric: Cooperative, appropriate mood & affect, normal judgment Results 07/17/22 04:11 07/16/22 22:32 Cardiac Enzymes 07/16/22 07/16/22 07/17/22 Range/Units 22:32 22:32 01:24 AST 26 (14-36) U/L Troponin I <0.012 0.016 (0.000-0.034) ng/mL 07/17/22 Range/Units 04:11 AST (14-36) U/L Troponin I 0.034 (0.000-0.034) ng/mL Coagulation 07/16/22 Range/Units 22:32 PT 10.7 (9.0-12.0) sec APTT 22.5 (22.0-30.0) sec CBC 07/16/22 07/17/22 Range/Units 22:32 04:11 WBC 15.6 H 15.4 H (3.8-10.6) k/uL RBC 5.66 H 4.83 (3.80-5.40) m/uL Hgb 16.4 H 13.9 (11.4-16.0) gm/dL Hct 51.3 H 44.1 (34.0-46.0) % Plt Count 368 293 (150-450) k/uL Comprehensive Metabolic Panel 07/16/22 Range/Units 22:32 Sodium 143 (137-145) mmol/L Potassium 4.8 (3.5-5.1) mmol/L Chloride 101 (98-107) mmol/L Carbon Dioxide 19 L (22-30) mmol/L BUN 15 (7-17) mg/dL Creatinine 1.18 H (0.52-1.04) mg/dL Glucose 257 H (74-99) mg/dL Calcium 9.8 (8.4-10.2) mg/dL AST 26 (14-36) U/L ALT 26 (4-34) U/L Alkaline Phosphatase 113 (38-126) U/L Total Protein 8.3 H (6.3-8.2) g/dL Albumin 4.8 (3.5-5.0) g/dL Current Medications Generic Name Dose Route Start Last Admin Trade Name Freq PRN Reason Stop Dose Admin Albuterol/Ipratropium 3 ml 07/17/22 00:21 Ipratropium-Albuterol 3 Ml Neb INHALATION RT-QID PRN Shortness Of Breath Or Wheezing Atorvastatin Calcium 40 mg 07/17/22 21:00 Atorvastatin 40 Mg Tab PO HS NADER Carvedilol 6.25 mg 07/17/22 17:30 Carvedilol 6.25 Mg Tab PO BID-W/MEALS NADER Ezetimibe 10 mg 07/18/22 09:00 Ezetimibe 10 Mg Tab PO DAILY NADER Furosemide 40 mg 07/17/22 00:30 07/17/22 07:37 Furosemide 10 Mg/Ml 4 Ml Vial IV 40 mg Q8H NADER Administration Sodium Chloride 1,000 mls @ 20 mls/hr 07/16/22 22:27 07/16/22 22:56 Saline 0.9% IV 07/17/22 22:26 20 mls/hr .Q24H STA Administration Lisinopril 20 mg 07/17/22 21:00 Lisinopril 20 Mg Tab PO BID NADER Morphine Sulfate 2 mg 07/16/22 22:27 Morphine Sulfate 2 Mg/Ml Syringe IVP Q4HR PRN Pain/Discomfort Intake and Output 07/16/22 07/17/22 07/17/22 22:59 06:59 14:59 Intake Total 5 Balance 5 Intake: IV 5 Invasive Line 1 5 Other: Voiding Method Toilet Toilet Diaper Diaper # Voids 1 Weight 113.398 kg 79.3 kg 07/17/22 04:11 07/16/22 22:32 Assessment and Plan Assessment: Acute on chronic diastolic congestive heart failure History of cardiomyopathy, unspecified History of hypertension History of hyperlipidemia Plan: Will obtain a 2-D echocardiogram Continue with IV Lasix continue with all other current cardiac medications continue with telemetry monitoring. Further recommendations based on clinical course The above impression and plan of care have been discussed and directed by the signing physician. Tatiana Rome, nurse practitioner, acting as scribe for signing physician.
[2022-07-17 15:18] LABS: Appearance,Urine Clear (Clear); Bilirubin,Urine Negative (Negative); Blood,Urine Negative (Negative); Color,Urine Light Yellow; Glucose,Urine (UA) Negative (Negative); Ketones,Urine Negative (Negative); Leukocyte Esterase,Urine Negative (Negative); Nitrite,Urine Negative (Negative); Protein,Urine Negative (Negative); Specific Gravity,Urine 1.011 (1.001-1.035); Urobilinogen,Urine <2.0 mg/dL (<2.0)
[2022-07-17] MEDS: carvediloL 6.25 MG TAB PO SCH (16:50)
[2022-07-17] MEDS: ATORVASTATIN 40 MG TAB PO SCH (20:16)
[2022-07-17] MEDS: lisinopriL 20 MG TAB PO SCH (20:16)
[2022-07-18] MEDS: carvediloL 6.25 MG TAB PO SCH ×2 (06:12→16:44)
[2022-07-18 06:23] LABS: Basophils # (A) 0.1 k/uL (0-0.2); Basophils % (A) 0 %; Eosinophils # (A) 0.1 k/uL (0-0.7); Eosinophils % (A) 1 %; HCT 42.5 % (34.0-46.0); HGB 13.8 gm/dL (11.4-16.0); Lymphocytes # (A) 3.3 k/uL (1.0-4.8); Lymphocytes % (A) 28 %; MCH 28.5 pg (25.0-35.0); MCHC 32.6 g/dL (31.0-37.0); MCV 87.6 fL (80.0-100.0); Mean Platelet Volume 8.4; Monocytes # (A) 0.8 k/uL (0-1.0); Monocytes % (A) 7 %; Neutrophils # (A) 7.3 k/uL (1.3-7.7); Neutrophils % (A) 63 %; Platelet Count 269 k/uL (150-450); RBC 4.85 m/uL (3.80-5.40); RDW 13.1 % (11.5-15.5); WBC 11.6 k/uL (3.8-10.6)
[2022-07-18 06:38] LABS: Calcium 8.8 mg/dL (8.4-10.2); Potassium 3.5 mmol/L (3.5-5.1)
[2022-07-18] MEDS: FUROSEMIDE 10 MG/ML 4 ML VIAL IV SCH ×2 (08:11→21:25)
[2022-07-18] MEDS: EZETIMIBE 10 MG TAB PO SCH (08:11)
--- NOTE | 2022-07-18 08:56 | P.HPIM ---
History of Present Illness H&P Date: 07/17/22 Chief Complaint: Shortness of breath/chest pain 71-year-old female with a known history of hypertension, hyperlipidemia, and cardiomyopathy, presented to the ER with increased shortness of breath and chest pain. Her EKG shows sinus rhythm with PVCs. Troponins have been negative 3. Blood pressure has been well-controlled 120/56 and heart rate 59. Workup in completed in ED reveals an elevated white blood count of 15.4, hemoglobin of 13.9 and platelet count of 293, sodium 143, potassium 4.8, BUN/creatinine of 50/1.18 and blood glucose of 257; troponin less than 0.012 She was started on IV Lasix 40 mg every 8. She reports that she has followed with Dr. Chandler for years and she had a cath quite some time ago she's not sure when. She had a positive stress test and underwent cardiac catheterization here at [facility] and was told everything was okay did not receive any intervention at that time. She also reports she had a echocardiogram prior this year and her e jection fraction was 45%. Review of Systems CONSTITUTIONAL: Denies fever or chills. EYES: Negative for vision changes ENT: Negative for hearing loss CARDIOVASCULAR: Denies chest pain, shortness of breath, diaphoresis, orthopnea, PND or palpitations. VASCULAR: Denies edema RESPIRATORY: Denies cough. GASTROINTESTINAL: Denies abdominal pain, diarrhea, constipation, nausea or vomiting. MUSCULOSKELETAL: Denies myalgias. NEUROLOGIC: Denies numbness, tingling, headache or weakness. ENDOCRINE: Denies fatigue, weight change, polydipsia or polyurina. GENITOURINARY: Denies burning, hematuria or urgency with micturation. HEMATOLOGIC: Denies history of anemia or bleeding. DERMATOLOGY: Denies rash or skin sores PSYCH: Negative for depression or hallucinations. Past Medical History Past Medical History: Heart Failure, Hyperlipidemia, Hypertension Additional Past Medical History / Comment(s): CHOLELITHIASIS. CARDIOMYOPATHY History of Any Multi-Drug Resistant Organisms: None Reported Past Surgical History: Cholecystectomy, Tubal Ligation Additional Past Surgical History / Comment(s): BILAT CATARACTS REMOVED WITH LENS IMPLANTS Past Anesthesia/Blood Transfusion Reactions: No Reported Reaction Past Psychological History: No Psychological Hx Reported Smoking Status: Never smoker Past Alcohol Use History: Occasional Past Drug Use History: None Reported - Past Family History Mother Family Medical History: No Reported History Medications and Allergies Home Medications Medication Instructions Recorded Confirmed Type Atorvastatin [Lipitor] 40 mg PO HS 07/03/20 07/17/22 History Ezetimibe [Zetia] 10 mg PO DAILY 07/03/20 07/17/22 History carvediloL [Coreg] 6.25 mg PO BID 07/03/20 07/17/22 History lisinopriL 20 mg PO BID 07/03/20 07/17/22 History Allergies Allergy/AdvReac Type Severity Reaction Status Date / Time hydromorphone [From Dilaudid] Allergy Nausea & Verified 07/16/22 22:38 Vomiting Physical Exam Vitals: Vital Signs Temp Pulse Pulse Resp BP BP Pulse Ox 07/17/22 07:35 98.7 F 58 L 18 118/65 98 07/17/22 04:00 97.5 F L 59 L 12 120/56 98 07/17/22 01:46 97.5 F L 100 14 133/73 98 07/17/22 00:00 83 20 120/77 95 07/16/22 23:30 86 22 101/74 93 L 07/16/22 23:00 93 27 H 138/82 98 07/16/22 22:38 97.5 F L 84 24 175/131 99 FiO2 07/17/22 07:35 07/17/22 04:00 07/17/22 01:46 07/17/22 00:00 07/16/22 23:30 07/16/22 23:00 07/16/22 22:38 100 Intake and Output 07/16/22 07/17/22 07/17/22 22:59 06:59 14:59 Intake Total 5 Balance 5 Intake: IV 5 Invasive Line 1 5 Other: Voiding Method Toilet Toilet Diaper Diaper # Voids 1 Weight 113.398 kg 79.3 kg Results CBC & Chem 7: 07/18/22 05:19 07/18/22 05:19 Labs: Abnormal Lab Results - Last 24 Hours (Table) 07/16/22 07/16/22 Range/Units 22:32 22:32 WBC 15.6 H (3.8-10.6) k/uL RBC 5.66 H (3.80-5.40) m/uL Hgb 16.4 H (11.4-16.0) gm/dL Hct 51.3 H (34.0-46.0) % Lymphocytes # (Manual) 7.80 H (1.0-4.8) k/uL Carbon Dioxide 19 L (22-30) mmol/L Creatinine 1.18 H (0.52-1.04) mg/dL Glucose 257 H (74-99) mg/dL Magnesium 2.4 H (1.6-2.3) mg/dL Total Bilirubin 2.1 H (0.2-1.3) mg/dL Total Protein 8.3 H (6.3-8.2) g/dL Thrombosis Risk Factor Assmnt - Choose All That Apply Any of the Below Risk Factors Present?: Yes Each Factor Represents 1 point: Heart failure (<1month), Obesity (BMI >25) Other Risk Factors: Yes Each Risk Factor Represents 2 Points: Age 61-74 years Other congenital or acquired thrombophilia - If yes, enter type in comment: No Thrombosis Risk Factor Assessment Total Risk Factor Score: 4 Thrombosis Risk Factor Assessment Level: Moderate Risk Assessment and Plan Assessment: 1. Acute on chronic diastolic CHF - Patient seemed IV Lasix in ED; we will continue with the twice a day dosing. Patient is evaluated by cardiology - Recommend 2-D echo; monitor EKG and trend troponin - We will monitor strict OLIVER's, daily weights, low salt and fluid restricted diet - Further recommendations after echocardiogram is completed 2. Mild renal injury; creatinine is elevated at 1.18; patient is clinically hypovolemic; we will monitor renal function and electrolytes closely; avoid nephrotoxins hypotension; monitor strict OLIVER 3. Leukocytosis; etiology unclear; workup has been negative so far; we will order a UA with culture; we will monitor CBC, CRP and pro-calcitonin 4. Hyperglycemia; no history of diabetes mellitus; we will monitor Accu-Cheks before meals and at bedtime with insulin sliding scale as needed; we will obtain HbA1c 5. Hyperlipidemia; Lipitor 40 mg by mouth daily at bedtime along with diarrhea 10 mg daily 6. Hypertension; lisinopril 20 mg twice a day; we will monitor renal function closely with plans to hold lisinopril if renal function continues to worsen 7. Hyperbilirubinemia; patient is asymptomatic; we will monitor liver enzymes and obtain a hepatitis profile DVT prophylaxis; SCDs CODE STATUS; full code
--- NOTE | 2022-07-18 09:29 | CA ---
Transthoracic Echo Report Name: Monik Hong Age: 71 Gender: F : 1950 Exam Date: 07/17/2022 11:58 Exam Location: [place] [facility] Ht (in): 64 Wt (lb): 174 Ordering Physician: Tatiana Rome Attending/Referring Phys: Dean Of Men Lou Navarro RDCS Procedure CPT: Indications: chf Cardiac Hx: Technical Quality: Good Contrast 1: N/A Total Dose (mL): Contrast 2: Total Dose (mL): MEASUREMENTS (Male / Female) Normal Values 2D ECHO LV Diastolic Diameter PLAX 5.3 cm 4.2 - 5.9 / 3.9 - 5.3 cm LV Systolic Diameter PLAX 3.6 cm IVS Diastolic Thickness 0.9 cm 0.6 - 1.0 / 0.6 - 0.9 cm LVPW Diastolic Thickness 1.1 cm 0.6 - 1.0 / 0.6 - 0.9 cm LV Relative Wall Thickness 0.4 RV Internal Dim ED PLAX 2.7 cm LA Systolic Diameter LX 3.6 cm 3.0 - 4.0 / 2.7 - 3.8 cm LA Volume 65.0 cm??? 18 - 58 / 22 - 52 cm??? M-MODE Aortic Root Diameter MM 3.0 cm LA Systolic Diameter MM 4.3 cm LA Ao Ratio MM 1.4 MV E Point Septal Separation 1.5 cm AV Cusp Separation MM 1.8 cm FINDINGS Left Ventricle Left ventricular ejection fraction is estimated at 35%. Mildly increased left ventricular wall thickness. Right Ventricle Normal right ventricular size and function. Right Atrium Normal right atrial size. Left Atrium Moderately increased left atrial volume. Mitral Valve Structurally normal mitral valve. Structurally normal mitral valve. Aortic Valve Trileaflet aortic valve. Aortic valve sclerosis. Tricuspid Valve Structurally normal tricuspid valve. Mild tricuspid regurgitation. Pulmonic Valve Structurally normal pulmonic valve. Pericardium Normal pericardium. Aorta Normal size aortic root and proximal ascending aorta. CONCLUSIONS Ischemic cardiomyopathy with moderate LV dysfunction with an ejection fraction of 35% secondary to prior Myocardial Infarction Previewed by: Dr. Barney Gonzalez MD (Electronically Signed) Final Date: 18 July 2022 09:29
[2022-07-18 10:32] LABS: Albumin 3.8 g/dL (3.5-5.0); Bilirubin, Delta 0.1 mg/dL (0.0-0.2); Bilirubin,Unconjugated 2.9 mg/dL (0.0-1.1); Total Protein 6.5 g/dL (6.3-8.2)
--- NOTE | 2022-07-18 11:16 | P.PN ---
Subjective Progress Note Date: 07/18/22 Patient is a pleasant 71-year-old female with a known history of hypertension, hyperlipidemia, and cardiomyopathy. Patient follows with Dr. Chandler in the office. We have been consult that C the patient for acute on chronic congestive heart failure. Patient initially presented to the ER with increased shortness of breath and chest pain. Her EKG shows sinus rhythm with PVCs. Troponins have been negative 3. Blood pressure has been well-controlled 120/56 and heart rate 59. She reports she had a cath quite some time ago, she's not sure when. She had a positive stress test and underwent cardiac catheterization here at [facility] and was told everything was okay did not receive any intervention at that time. She also reports she had a echocardiogram prior this year and her ejection fraction was 45%. Patient is resting comfortably in bed today upon exam. She denies any increased shortness of breath or chest pain. Echocardiogram shows ischemic cardiomyopathy with moderate LV dysfunction with an ejection fraction of 35% secondary to prior NC. BUN is 25 today creatinine is 1.4. Will decrease Lasix to 40 mg twice a day Objective - Vital Signs Vital signs: Vital Signs Temp 98.1 F 07/18/22 08:09 Pulse 62 07/18/22 08:09 Resp 18 07/18/22 08:09 BP 113/62 07/18/22 08:09 Pulse Ox 92 L 07/18/22 08:09 FiO2 100 07/16/22 22:38 Intake & Output 07/17/22 07/18/22 07/18/22 18:59 06:59 18:59 Intake Total 10 118 Output Total 1850 675 Balance -1840 -557 Weight 78.5 kg Intake: IV 10 Invasive Line 1 10 Oral 118 Output: Urine 1850 675 Other: Voiding Method Toilet Toilet Toilet Diaper Diaper Diaper # Voids 2 1 1 - Exam PHYSICAL EXAM: VITAL SIGNS: Reviewed. GENERAL: Well-developed in no acute distress. HEENT: Head is normocephalic. Pupils are equal, round. Sclerae anicteric. Mucous membranes of the mouth are moist. NECK: Supple. No JVD or thyromegaly RESPIRATORY: Respirations even and unlabored. Lungs diminished to auscultation bilaterally. CARDIO: Regular rate and rhythm. S1 and S2 heard. No murmur or gallops. EXTREMITIES: Normal range of motion. No clubbing or cyanosis. Peripheral p ulses intact. Negative for bilateral lower extremity edema NEURO: Orientated to person, time, mood is appropriate - Labs CBC & Chem 7: 07/18/22 05:19 07/18/22 05:19 Labs: Abnormal Lab Results - Last 24 Hours (Table) 07/17/22 07/17/22 07/17/22 Range/Units 04:11 04:11 04:11 WBC 15.4 H (3.8-10.6) k/uL Neutrophils # 13.0 H (1.3-7.7) k/uL Chloride (98-107) mmol/L Carbon Dioxide (22-30) mmol/L BUN 20 H (7-17) mg/dL Creatinine 1.19 H (0.52-1.04) mg/dL Glucose 157 H (74-99) mg/dL Total Bilirubin (0.2-1.3) mg/dL Unconjugated Bilirubin (0.0-1.1) mg/dL Procalcitonin 0.15 H (0.02-0.09) ng/mL 07/18/22 07/18/22 07/18/22 Range/Units 05:19 05:19 05:19 WBC 11.6 H (3.8-10.6) k/uL Neutrophils # (1.3-7.7) k/uL Chloride 96 L (98-107) mmol/L Carbon Dioxide 31 H (22-30) mmol/L BUN 25 H (7-17) mg/dL Creatinine 1.40 H (0.52-1.04) mg/dL Glucose 126 H (74-99) mg/dL Total Bilirubin 3.0 H (0.2-1.3) mg/dL Unconjugated Bilirubin 2.9 H (0.0-1.1) mg/dL Procalcitonin (0.02-0.09) ng/mL Assessment and Plan Assessment: Acute on chronic diastolic congestive heart failure History of cardiomyopathy, unspecified History of hypertension History of hyperlipidemia Plan: 2-D echocardiogram obtained and reviewed Decrease Lasix to 40 mg twice a day continue with all other current cardiac medications continue with telemetry monitoring. Further recommendations based on clinical course The above impression and plan of care have been discussed and directed by the signing physician. Tatiana Glaza, nurse practitioner, acting as scribe for signing physician.
[2022-07-18] MEDS: lisinopriL 20 MG TAB PO SCH ×2 (11:43→21:25)
[2022-07-18] MEDS: INSULIN ASPART (NovoLOG) 100 UNIT/ML VIAL SQ SCH ×3 (11:49→21:25)
[2022-07-18 11:57] LABS: Glucose,Whole Blood 132 mg/dL (70-110)
--- NOTE | 2022-07-18 12:46 | P.PN ---
Subjective Progress Note Date: 07/18/22 Principal diagnosis: Acute on chronic diastolic CHF Mild renal injury Hyperglycemia; likely new onset diabetes Leukocytosis; etiology unclear 71-year-old female with a known history of hypertension, hyperlipidemia, and cardiomyopathy, presented to the ER with increased shortness of breath and chest pain. Her EKG shows sinus rhythm with PVCs. Troponins have been negative 3. Blood pressure has been well-controlled 120/56 and heart rate 59. Workup in completed in ED reveals an elevated white blood count of 15.4, hemoglobin of 13.9 and platelet count of 293, sodium 143, potassium 4.8, BUN/creatinine of 50/1.18 and blood glucose of 257; troponin less than 0.012 She was started on IV Lasix 40 mg every 8. She reports that she has followed with Dr. Chandler for years and she had a cath quite some time ago she's not sure when. She had a positive stress test and underwent cardiac catheterization here at [facility] and was told everything was okay did not receive any intervention at that time. She also reports she had a echocardiogram prior this year and her ejection fraction was 45%. 07/18/2022 Patient is seen and evaluated sitting up in bed; denies any specific complaints Blood work, especially elevated liver enzymes and leukocytosis was discussed with patient; patient's agreeable with monitoring liver enzymes with possibility of hepatic ultrasound if continue to trend up Leukocytosis is resolving; no obvious source of infection; chest x-ray and UA and are remarkable Creatinine has trended up slightly and is at 1.4 this morning; cardiology recommending to de-escalate diuretic therapy Lasix 40 mg twice a day; we will continue to monitor renal function and lites closely Objective - Vital Signs Vital signs: Vital Signs Temp 98.1 F 07/18/22 08:09 Pulse 62 07/18/22 08:09 Resp 18 07/18/22 08:09 BP 113/62 07/18/22 08:09 Pulse Ox 92 L 07/18/22 08:09 FiO2 100 07/16/22 22:38 Intake & Output 07/17/22 07/18/22 07/18/22 18:59 06:59 18:59 Intake Total 10 118 Output Total 1850 675 Balance -1840 -557 Weight 78.5 kg Intake: IV 10 Invasive Line 1 10 Oral 118 Output: Urine 1850 675 Other: Voiding Method Toilet Toilet Toilet Diaper Diaper Diaper # Voids 2 1 1 - Exam VITAL SIGNS: Reviewed. GENERAL: Well-developed in no acute distress. HEENT: Head is normocephalic. Pupils are equal, round. Sclerae anicteric. Mucous membranes of the mouth are moist. NECK: Supple. No JVD or thyromegaly RESPIRATORY: Respirations even and unlabored. Lungs diminished to auscultation bilaterally. CARDIO: Regular rate and rhythm. S1 and S2 heard. No murmur or gallops. EXTREMITIES: Normal range of motion. No clubbing or cyanosis. Peripheral pulses intact. Negative for bilateral lower extremity edema NEURO: Orientated to person, time, mood is appropriate - Labs CBC & Chem 7: 07/18/22 05:19 07/18/22 05:19 Labs: Abnormal Lab Results - Last 24 Hours (Table) 07/17/22 07/17/22 07/17/22 Range/Units 04:11 04:11 04:11 WBC 15.4 H (3.8-10.6) k/uL Neutrophils # 13.0 H (1.3-7.7) k/uL Chloride (98-107) mmol/L Carbon Dioxide (22-30) mmol/L BUN 20 H (7-17) mg/dL Creatinine 1.19 H (0.52-1.04) mg/dL Glucose 157 H (74-99) mg/dL Procalcitonin 0.15 H (0.02-0.09) ng/mL 07/18/22 07/18/22 Range/Units 05:19 05:19 WBC 11.6 H (3.8-10.6) k/uL Neutrophils # (1.3-7.7) k/uL Chloride 96 L (98-107) mmol/L Carbon Dioxide 31 H (22-30) mmol/L BUN 25 H (7-17) mg/dL Creatinine 1.40 H (0.52-1.04) mg/dL Glucose 126 H (74-99) mg/dL Procalcitonin (0.02-0.09) ng/mL Assessment and Plan Assessment: 1. Acute on chronic diastolic CHF - Patient seemed IV Lasix in ED; we will continue with the twice a day dosing. Patient is evaluated by cardiology - Recommend 2-D echo; monitor EKG and trend troponin - We will monitor strict OLIVER's, daily weights, low salt and fluid restricted diet - Further recommendations after echocardiogram is completed 2. Mild renal injury; creatinine is elevated at 1.18; patient is clinically hypovolemic; we will monitor renal function and electrolytes closely; avoid nephrotoxins hypotension; monitor strict OLIVER 3. Leukocytosis; etiology unclear; workup has been negative so far; we will order a UA with culture; we will monitor CBC, CRP and pro-calcitonin 4. Hyperglycemia; no history of diabetes mellitus; we will monitor Accu-Cheks before meals and at bedtime with insulin sliding scale as needed; we will obtain HbA1c 5. Hyperlipidemia; Lipitor 40 mg by mouth daily at bedtime along with diarrhea 10 mg daily 6. Hypertension; lisinopril 20 mg twice a day; we will monitor renal function closely with plans to hold lisinopril if renal function continues to worsen 7. Hyperbilirubinemia; patient is asymptomatic; we will monitor liver enzymes and obtain a hepatitis profile DVT prophylaxis; SCDs CODE STATUS; full code
[2022-07-18 19:00] LABS: Hepatitis A Antibody IgM Nonreactive (Nonreactive); Hepatitis B Core IgM Nonreactive (Nonreactive); Hepatitis B Surface Antigen Nonreactive (Nonreactive); Hepatitis C IgG Antibody Nonreactive (Nonreactive)
[2022-07-18 21:06] LABS: Glucose,Whole Blood 173 mg/dL (70-110)
[2022-07-18] MEDS: ATORVASTATIN 40 MG TAB PO SCH (21:25)
[2022-07-18 22:09] VITALS: RESP 18
[2022-07-19 05:58] LABS: Glucose,Whole Blood 146 mg/dL (70-110)
[2022-07-19] MEDS: INSULIN ASPART (NovoLOG) 100 UNIT/ML VIAL SQ SCH ×2 (06:12→12:10)
[2022-07-19] MEDS: carvediloL 6.25 MG TAB PO SCH (06:42)
[2022-07-19] MEDS: FUROSEMIDE 10 MG/ML 4 ML VIAL IV SCH ×2 (08:59→10:24)
[2022-07-19] MEDS: lisinopriL 20 MG TAB PO SCH ×2 (08:59→10:25)
[2022-07-19] MEDS: EZETIMIBE 10 MG TAB PO SCH (08:59)
[2022-07-19 11:49] LABS: Glucose,Whole Blood 158 mg/dL (70-110)
[2022-07-19 12:43] VITALS: BP 94/60; TEMP 98
[2022-07-19 12:47] LABS: Calcium 9.3 mg/dL (8.4-10.2); Potassium 3.5 mmol/L (3.5-5.1)
[2022-07-19 14:12] VITALS: BMI 29.6
--- NOTE | 2022-07-19 15:16 | CDI ---
Documentation Clarification Form Date: 07/19/2022 03:14:00 PM From: Nidhi Martin RN, CCDS Admit Date: 07/17/2022 12:21:00 AM Patient Name: Monik Hong Visit Number: [id number] Discharge Date: ATTENTION: The Clinical Documentation Specialists (CDI) and [facility] Coding Staff appreciate your assistance in clarifying documentation. Please respond to the clarification below the line at the bottom and electronically sign. The CDI & [facility] Coding staff will review the response and follow-up if needed. Please note: Queries are made part of the Legal Health Record. If you have any questions, please contact the author of this message via ITS. Dr. Zev Worley Mild kidney injury is documented in the H/P and subsequent progress notes. Additional clarification regarding the acuity of renal failure is requested. History/Risk Factors: hypertension, Hyperlipidemia, Clinical Indicators: 71-year-old female present with shortness of breath and chest pain. 07/16 BUN 15, CR 1.18 GFR 47 07/17 BUN 20 CR 1.19 GFR 47 07/18 BUN 25 CR 1.40 GFR 38 Treatment: Telemetry/Monitoring Monitor BUN, CR, Lytes Please clarify the acuity of renal failure, if known: [ ] Acute Kidney injury (specify cause if known) [ ] Other, please specify [ ] Unable to determine (Template Last Revised: December 2020) Acute renal failure, diuretic induced Dictated By: Aleena Talamantes Signed By: <Electronically signed by Aleena PIERCE> 07/19/22 1632 MTDGrant
[2022-07-19 16:15] VITALS: PULSE 104
--- NOTE | 2022-07-19 16:32 | P.DS ---
Providers Date of admission: 07/17/22 00:21 Expected date of discharge: 07/19/22 Attending physician: Rene Phelan Consults: 07/17/22 00:21 Consult Physician Routine Consulting Provider: aKyla Chandler Consult Reason/Comments: chf Do you want consulting provider notified?: Yes Primary care physician: Rene Phelan Hospital Course: Final Diagnoses: Acute on chronic diastolic congestive heart failure Cardiomyopathy, ischemic with moderate LV dysfunction, EF 35% secondary to prior OR. Acute renal failure, diuretic induced Chronic renal failure, stage III, baseline 1. Mildly Elevated T bili 3.0 and unconjugated bilirubin 2.9, negative for abdominal pain ,possibly Gilbert's syndrome, follow-up with GI outpatient for further workup Diabetes mellitus, A1c 6.7, diabetic education outpatient in clinic. Patient instructed to maintain log of Accu-Cheks before meals and at bedtime, take to follow-up visit with PCP for further recommendations. hypertension hyperlipidemia Hospital course: This a 71-year-old female admitted with acute on chronic CHF and multiple other medical issues. Echocardiogram reporting ischemic cardiomyopathy with moderate LV dysfunction, EF 35% secondary to prior OR. Significant clinical improvement. Patient will be discharged home later today in stable condition with guarded prognosis, pending BMP, final DC recommendations and clearance as per cardiology. A1c 6.7, case management to assist with glucometer and testing supplies. Patient has been instructed to maintain log of Accu-Cheks before meals and at bedtime, take to follow-up visit with PCP for further recommendations as well as diabetic education. Mildly elevated T bili and unconjugated bili 3.0/2.9 without abdominal pain, recommending outpatient follow-up with Dr. Emma CARRASCO. The impression and plan of care has been dictated as directed. : I performed a history and examination of this patient, discussed the same with the dictator. I agree with the dictator's note ,documented as a scribe. Any additional findings or plans will be noted. Patient Condition at Discharge: Stable Plan - Discharge Summary New Discharge Prescriptions: New Furosemide [Lasix] 40 mg PO DAILY #30 tab lisinopriL [Zestril] 10 mg PO HS #30 tab carvediloL [Coreg] 3.125 mg PO BID-W/MEALS #60 tab Continue Ezetimibe [Zetia] 10 mg PO DAILY Atorvastatin [Lipitor] 40 mg PO HS Discontinued lisinopriL 20 mg PO BID carvediloL [Coreg] 6.25 mg PO BID Discharge Medication List Atorvastatin [Lipitor] 40 mg PO HS 07/03/20 [History] Ezetimibe [Zetia] 10 mg PO DAILY 07/03/20 [History] Furosemide [Lasix] 40 mg PO DAILY #30 tab 07/19/22 [Rx] carvediloL [Coreg] 3.125 mg PO BID-W/MEALS #60 tab 07/19/22 [Rx] lisinopriL [Zestril] 10 mg PO HS #30 tab 07/19/22 [Rx] Follow up Appointment(s)/Referral(s): Kayla Chandler MD [STAFF PHYSICIAN] - 07/28/22 9:30 am Rene Phelan DO [Primary Care Provider] - 07/26/22 2:20 pm Ambulatory/Diagnostic Orders: Basic Metabolic Panel [LAB.AMB] Time Frame: 3 Days, Location: None Selected Activity/Diet/Wound Care/Special Instructions: BMP pending
[2022-07-19] MEDS ORDERED: carvediloL 3.125 MG TAB PO SCH (17:30)
[2022-07-19] MEDS ORDERED: lisinopriL 10 MG TAB PO SCH (21:00)
--- NOTE | 2022-07-20 06:03 | PN ---
PROGRESS NOTE SUBJECTIVE: This lady has history of probable nonischemic cardiomyopathy. She is here with increasing shortness of breath, received IV Lasix. Blood pressure is low. She feels better. No chest pain. Her blood pressure is low. I am recommending that we reduce the Coreg and lisinopril, switch her from IV to oral Lasix 40 mg daily, increase activity, and if she has no further symptoms, she can be discharged and follow up with Dr. Chandler in 2 weeks. Discussed my thoughts in detail with the patient. MMODL / IJN: [id number] /
[2022-07-20] MEDS ORDERED: FUROSEMIDE 40 MG TAB PO SCH (09:00)
== END 2022-07-19 16:29 | disposition home or self-care (01) | DRG 291 ==
LOC: EC 22:23 → 3SCARD 07-17 00:21
PROVIDERS: ADMIT Family Medicine; ATTEND Family Medicine
PROC: 5A09357 Assistance with Respiratory Ventilation, Less than 24 Consecutive Hours, Continuous Positive Airway Pressure (ICD-10-PCS; principal; 2022-07-16)
DX: I13.0 Hypertensive heart and chronic kidney disease with heart failure and stage 1 through stage 4 chronic kidney disease, or unspecified chronic kidney disease (principal); I50.33 Acute on chronic diastolic (congestive) heart failure; J96.00 Acute respiratory failure, unspecified whether with hypoxia or hypercapnia; N17.9 Acute kidney failure, unspecified; T50.2X5A Adverse effect of carbonic-anhydrase inhibitors, benzothiadiazides and other diuretics, initial encounter; I25.5 Ischemic cardiomyopathy; J44.9 Chronic obstructive pulmonary disease, unspecified; N18.30 Chronic kidney disease, stage 3 unspecified; F41.9 Anxiety disorder, unspecified; E78.5 Hyperlipidemia, unspecified; E11.65 Type 2 diabetes mellitus with hyperglycemia; E11.22 Type 2 diabetes mellitus with diabetic chronic kidney disease; E80.6 Other disorders of bilirubin metabolism; I49.3 Ventricular premature depolarization; E86.1 Hypovolemia; D72.829 Elevated white blood cell count, unspecified; E66.9 Obesity, unspecified; Z68.29 Body mass index [BMI] 29.0-29.9, adult; E80.4 Gilbert syndrome; Z96.1 Presence of intraocular lens; I25.2 Old myocardial infarction; Z79.899 Other long term (current) drug therapy; Z98.42 Cataract extraction status, left eye; Z98.41 Cataract extraction status, right eye; Z88.5 Allergy status to narcotic agent
CPT/HCPCS: 36415; 71045; 80048; 80053; 80074; 80076; 81003; 83036; 83735; 83880; 84145; 84484; 85025; 85610; 85730; 93005; 93306; 94660; 96361; 96374; 96375; 99285

== ENCOUNTER → 2023-04-27 | Outpatient (CLI) | payer MEDICARE ==
--- NOTE | 2023-04-27 14:06 | XR ---
EXAMINATION TYPE: XR Hip LT and AP Pelvis DATE OF EXAM: 04/27/2023 COMPARISON: NONE HISTORY: Pain TECHNIQUE: A single AP view of the pelvis is obtained. Two views of the left hip are obtained. FINDINGS: There is no acute fracture/dislocation evident in the pelvis. The hip and sacroiliac join ts appear symmetric and unremarkable. There is severe narrowing of the right hip. There is mild narro wing of the left hip joint. Diffuse osteopenia. There are calcifications in the pelvis. IMPRESSION: 1. Mild left hip arthropathy. 2. Moderate to severe right hip arthropathy with the chronic appearing deformity of the proximal femu r could be on the basis of prior trauma.
== END | disposition home or self-care (01) ==
LOC: RADXRMAIN 13:09
PROVIDERS: ATTEND Family Medicine
DX: M16.0 Bilateral primary osteoarthritis of hip (principal)
CPT/HCPCS: 73502

== ENCOUNTER → 2024-06-26 | Outpatient (CLI) | payer MEDICARE ==
--- NOTE | 2024-06-26 15:14 | XR ---
EXAMINATION TYPE: XR chest 2V DATE OF EXAM: 06/26/2024 COMPARISON: 07/16/2022 HISTORY: 73-year-old female R94.2 ABNORMAL RESULTS OF PULMONARY FUNCTION STUDIES TECHNIQUE: Frontal and lateral views FINDINGS: Heart normal size. Atherosclerotic arch calcifications. Opacity at the cardiac apex suggestive of a p rominent epicardial fat pad. Slight eventration anterior right hemidiaphragm. Otherwise, no consolida tion or pleural effusion. IMPRESSION: No definite acute process.
== END | disposition home or self-care (01) ==
LOC: RADXRMAIN 14:01
PROVIDERS: ATTEND Family Medicine
DX: R94.2 Abnormal results of pulmonary function studies
CPT/HCPCS: 71046

== ENCOUNTER → 2024-08-28 | Outpatient (CLI) | payer MEDICARE ==
[2024-08-28 15:35] LABS: African American GFR (CKD) 46 (>60 ml/min/1.73 sqM); Blood Urea Nitrogen 21 mg/dL (7-17); Non-African American GFR(CKD) 40 (>60 ml/min/1.73 sqM)
--- NOTE | 2024-08-28 17:42 | CT ---
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 Lower abdominal pain. TECHNIQUE: Axial CT abdomen pelvis w con;Sagittal and coronal reformats were created on a separate w orkstation. Contrast used:80 ml mL of Isovue 300 with IV Contrast, (none if empty) Oral contrast used: with Oral Contrast (none if empty) CT DLP: 880.3 mGycm, Automated exposure control for dose reduction was used. FINDINGS: LOWER CHEST: Unremarkable ABDOMEN LIVER: Unremarkable GALLBLADDER AND BILE DUCTS: The gallbladder is surgically absent. PANCREAS: Unremarkable. SPLEEN: Unremarkable. ADRENAL GLANDS: Indeterminate right adrenal nodule measuring 10 mm. The left adrenal nodule. KIDNEYS AND URETERS: No evidence of hydronephrosis or renal calculus. The ureters are unremarkable. PELVIS BLADDER: No evidence for wall thickening or mass given limitations of exam. REPRODUCTIVE: Unremarkable. ABDOMEN & PELVIS STOMACH AND BOWEL: No evidence of bowel obstruction. Scattered colonic diverticula throughout the col on predominantly the sigmoid colon may be some mild inflammation changes in the left lower quadrant. No perforation or abscess. PERITONEUM/RETROPERITONEUM: No evidence of pneumoperitoneum or free fluid. VASCULATURE: No evidence of aortic aneurysm. MUSCULOSKELETAL: No acute osseous abnormalities LYMPH NODES: No gross evidence for lymphadenopathy. SOFT TISSUE/ABDOMINAL WALL: Unremarkable IMPRESSION: 1. Scattered colonic diverticula some in the left lower quadrant may have minimal inflammation serie s 7 image 28. Otherwise no acute abdominal process. 2. Moderate amount stool throughout the abdomen. [facility], , 08/28/2024 5:40 PM
== END | disposition home or self-care (01) ==
LOC: RADCTMAIN 14:56
PROVIDERS: ATTEND Family Medicine
DX: K57.33 Diverticulitis of large intestine without perforation or abscess with bleeding (principal); K56.41 Fecal impaction
CPT/HCPCS: 82565; 84520; 74177; 36415; Q9967